=== PATIENT | male | born 1940 | race Caucasian/White ===

== ENCOUNTER 2018-10-18 17:22 | Emergency (ER) | payer MEDICARE, OTHER, SELFPAY ==
[2018-10-18 17:33] VITALS: BP 159/73; PULSE 57; RESP 21; TEMP 36.6; O2SAT 100
--- NOTE | 2018-10-18 17:42 | DI.RAD.S_ITS ---
PROCEDURE: XR ACUTE ABDOMEN SERIES INDICATIONS: abdominal pain, chest pain and constipation TECHNIQUE: One view chest and two views of the abdomen were acquired. COMPARISON: None. FINDINGS: Surgical changes and devices: None. Chest: Lungs are clear. Heart size is normal. No pleural effusions. No pneumoperitoneum. Abdomen: Bowel gas pattern demonstrates a paucity of gas in the small bowel. There is gas throughout the colon including in the rectum where there is moderate colonic stool distention. There are scattered air-fluid levels throughout the colon as well as within a few small bowel loops. No suspicious calcifications. Bones: No suspicious bony lesions. IMPRESSION: 1. Scattered air-fluid levels in the colon and small bowel suggestive of a gastroenteritis. 2. Moderate colonic stool distention in the rectum compatible with history of constipation. No definite evidence of obstruction. Dictated by: Jean Carlos Stockton M.D. on 10/18/2018 at 18:58 Approved by: Jean Carlos Stockton M.D. on 10/18/2018 at 19:00
[2018-10-18 18:09] VITALS: BP 134/60; BP 159/73; PULSE 54; PULSE 57; RESP 14; RESP 21; TEMP 36.6; O2SAT 100; O2SAT 98
--- NOTE | 2018-10-18 18:23 | ED.ABDPAIN ---
HPI - Abdominal Pain <NAEL Fink - Last Filed: 10/18/18 22:06> General Chief Complaint: Abdominal Pain Stated Complaint: stomach pain and chest pain Time Seen by Provider: 10/18/18 17:36 Source: patient Mode of arrival: ambulatory Limitations: no limitations History of Present Illness HPI narrative: 78-year-old male with history of GERD and was a former smoker here for complaint of bilateral lower abdominal pain that has been on and off over the past several weeks. He also reports having constipation over the last several days has had several episodes of constipation over the last several weeks as well. He was seen for this by his primary care provider and was placed on MiraLax. He states that this has not helped his constipation. He states that his last bowel movement was 3 days ago. He denies any urinary symptoms. He states he feels distention in his abdomen. Slight discomfort up to the epigastric area. He denies any shortness of breath. He denies any chest pain. MD complaint: abdominal pain Related Data Home Medications Medication Instructions Recorded Confirmed alfuzosin 10 mg PO QPM 10/18/18 10/18/18 amlodipine 5 mg PO BID 10/18/18 10/18/18 donepezil 5 mg PO BID 10/18/18 10/18/18 finasteride 5 mg PO DAILY 10/18/18 10/18/18 memantine 14 mg PO BID 10/18/18 10/18/18 omeprazole 20 mg PO DAILY 10/18/18 10/18/18 simvastatin 40 mg PO QPM 10/18/18 10/18/18 Previous Rx's Medication Instructions Recorded glycerin (adult) 1 suppositor CA QD-BID PRN #10 each 10/18/18 magnesium citrate 296 ml PO NOW #296 ml 10/18/18 Allergies Allergy/AdvReac Type Severity Reaction Status Date / Time No Known Drug Allergies Allergy Verified 10/18/18 17:45 Review of Systems <NAEL Fink - Last Filed: 10/18/18 22:06> Constitutional Denies chills, Denies fever(s), Denies lethargy and Denies weakness Eyes Denies change in vision, Denies eye discharge, Denies irritation and Denies loss of vision ENT Ears, Nose, Mouth, and Throat: Denies change in voice, Denies neck pain and Denies sore throat Cardiovascular Denies chest pain, Denies irregular heart rhythm, Denies lightheadedness, Denies palpitations, Denies dyspnea, Denies dyspnea on exertion and Denies orthopnea Respiratory Denies cough, Denies dyspnea, Denies dyspnea on exertion and Denies wheezing Gastrointestinal Gastrointestinal: Reports abdominal pain, Denies change in bowel habits, Reports constipation, Denies diarrhea, Denies nausea and Denies vomiting Comments: Abdominal pain and constipation Genitourinary Denies hematuria, Denies flank pain, Denies urinary incontinence and Denies urinary urgency Musculoskeletal Denies neck pain Integumentary/Breasts Denies pruritus, Denies erythema, Denies rash and Denies wounds Neurologic Denies confusion, Denies loss of vision and Denies weakness Psychiatric Denies anxiety, Denies confusion, Denies depression, Denies homicidal ideation and Denies suicidal ideation Endocrine Denies palpitations Hematologic/Lymphatic Denies easy bruising Allergic/Immunologic Denies wheezing Exam <NAEL Fink - Last Filed: 10/18/18 22:06> Initial Vital Signs Initial Vital Signs: Vital Signs Temperature 97.8 F 10/18/18 17:33 Pulse Rate 57 L 10/18/18 17:33 Respiratory Rate 21 10/18/18 17:33 Blood Pressure 159/73 H 10/18/18 17:33 Pulse Oximetry 100 10/18/18 17:33 Const General: cooperative and well developed Nutritional Appearance: well nourished Orientation: alert, awake, oriented x3 and not confused [facility] Mouth: oral mucosae normal and moist mucous membranes Eyes Conjunctivae: conjunctivae normal Sclera: sclerae normal Pupils: PERRL EOM: EOM intact bilaterally Resp Effort & Inspection: normal respiratory effort, able to speak in complete sentences, no respiratory distress and no use of accessory muscles Auscultation: clear to auscultation bilaterally, no rales, no rhonchi and no wheezes Cardio Rate: regular rate Rhythm: regular rhythm Heart Sounds: no click, no gallops, no murmurs and no rubs GI Inspection: non-distended Palpation: soft, no hepatosplenomegaly, No guarding, No pulsatile mass and tender (Generalized discomfort on palpation) Auscultation: normal bowel sounds General: No CVA tenderness Skin General: no rashes or lesions noted, No jaundice and No petechiae Neuro General: alert, oriented x3, gait normal and no focal motor deficits Speech: speech normal <Mehul Schmid DO - Last Filed: 10/19/18 00:07> Initial Vital Signs Initial Vital Signs: Vital Signs Temperature 97.8 F 10/18/18 17:33 Pulse Rate 57 L 10/18/18 17:33 Respiratory Rate 21 10/18/18 17:33 Blood Pressure 159/73 H 10/18/18 17:33 Pulse Oximetry 100 10/18/18 17:33 Course <NAEL Fink - Last Filed: 10/18/18 22:06> Orders Ordered: ED Orders 10/18/18 17:42 XR acute abdomen series Stat 10/18/18 18:04 Complete Blood Count AUTO DIFF Stat Comprehensive Metabolic Panel Stat Lipase Stat Troponin & CK Cardiac Panel Stat Vital Signs - 8 hr 10/18/18 17:33 10/18/18 18:09 10/18/18 20:02 Temperature 97.8 F 97.8 F 98.2 F Pulse Rate 57 L 54 L 55 L Respiratory Rate 21 14 18 Blood Pressure 159/73 H 159/73 H Blood Pressure [Right Arm] 134/60 142/73 H Pulse Oximetry 100 98 96 <Mehul Schmid DO - Last Filed: 10/19/18 00:07> Orders Ordered: ED Orders 10/18/18 17:42 XR acute abdomen series Stat 10/18/18 18:04 Complete Blood Count AUTO DIFF Stat Comprehensive Metabolic Panel Stat Lipase Stat Troponin & CK Cardiac Panel Stat Vital Signs - 8 hr 10/18/18 17:33 10/18/18 18:09 10/18/18 20:02 Temperature 97.8 F 97.8 F 98.2 F Pulse Rate 57 L 54 L 55 L Respiratory Rate 21 14 18 Blood Pressure 159/73 H 159/73 H Blood Pressure [Right Arm] 134/60 142/73 H Pulse Oximetry 100 98 96 MDM - Abdominal Pain <NAEL Fink - Last Filed: 10/18/18 22:06> Lab Data Result diagrams: 10/18/18 18:04 10/18/18 18:04 Lab Results 10/18/18 10/18/18 Range/Units 18:04 18:04 WBC 9.0 (4.5-11.0) X10^3/uL RBC 4.12 L (4.5-5.9) X10^6/uL Hgb 12.5 L (13.5-17.5) g/dL Hct 36.7 L (41-53) % MCV 89.2 (80-100) fL MCH 30.3 (26-34) PG MCHC 34.0 (30-36) % RDW 13.4 (11.6-14.8) % Plt Count 172 (150-400) X10^3/uL Neut % (Auto) 83.7 H (50-75) % Lymph % (Auto) 7.9 L (25-40) % [place] % (Auto) 7.0 (3-14) % Eos % (Auto) 0.7 L (2-4) % Baso % (Auto) 0.7 (0-2) % Neut # (Auto) 7500 H (3249-9350) /uL Sodium 135 L (137-145) mmol/L Potassium 4.1 (3.4-5.1) mmol/L Chloride 98 (98-107) mmol/L Carbon Dioxide 25 (22-32) mmol/L BUN 21 H (9-20) mg/dL Creatinine 0.70 (0.66-1.25) mg/dL Estimated GFR > 60.0 (>60) mL/min BUN/Creatinine Ratio 30.0 H (6-22) Glucose 104 (80-110) mg/dL Calcium 9.5 (8.4-10.2) mg/dL Total Bilirubin 0.5 (0.2-1.3) mg/dL AST 19 (17-59) IU/L ALT 21 (21-72) IU/L Alkaline Phosphatase 73 (38-126) U/L Total Creatine Kinase 122 (55-170) U/L CK-MB (CK-2) 2.29 (<2.37) ng/mL CK-MB (CK-2) Rel Index 1.9 (1.5-5.0) % Troponin I 0.017 (0.01-0.034) ng/mL Total Protein 6.9 (6.3-8.2) g/dL Albumin 4.4 (3.5-5.0) g/dL Globulin 2.5 (1.7-4.1) g/dL Albumin/Globulin Ratio 1.8 (1.0-2.8) Lipase 225 (23-300) U/L Imaging Data Abdominal x-ray: Radiologist's impression: [address] [address] XRay Report Signed Patient: Tony Shetty BMR#: [id number] : 9Acct:[id number] Age/Sex: 78 / MDate of Service: 10/18/18 Loc: ED Accession Number: [id number] Procedure: XR acute abdomen series Ordering Provider: Donna Love MD PROCEDURE: XR ACUTE ABDOMEN SERIES INDICATIONS: abdominal pain, chest pain and constipation TECHNIQUE: One view chest and two views of the abdomen were acquired. COMPARISON: None. FINDINGS: Surgical changes and devices: None. Chest: Lungs are clear. Heart size is normal. No pleural effusions. No pneumoperitoneum. Abdomen: Bowel gas pattern demonstrates a paucity of gas in the small bowel. There is gas throughout the colon including in the rectum where there is moderate colonic stool distention. There are scattered air-fluid levels throughout the colon as well as within a few small bowel loops. No suspicious calcifications. Bones: No suspicious bony lesions. IMPRESSION: 1. Scattered air-fluid levels in the colon and small bowel suggestive of a gastroenteritis. 2. Moderate colonic stool distention in the rectum compatible with history of constipation. No definite evidence of obstruction. Dictated by: Jean Carlos Stockton M.D. on 10/18/2018 at 18:58 Approved by: Jean Carlos Stockton M.D. on 10/18/2018 at 19:00 ECG Data Interpretation: EKG shows normal sinus rhythm with no ST elevation or depression. No ectopy. Ventricular rate of 60. Pr interval of 149. QTC of 406. MDM Narrative Medical decision making narrative: X-ray of the chest and abdomen was obtained and shows findings consistent with constipation. He is prescribed glycerin suppositories and also magnesium citrate to see if help him have a bowel movement. He is encouraged to follow up with primary care provider in the next few days for re-evaluation. Plenty of fluids. Increase fiber in diet. CBC was obtained and shows a mild anemia otherwise is unremarkable. chemistry panel and lipase were obtained and were unremarkable. EKG shows sinus rhythm with no ST elevation or depression. No ectopy. Troponin was obtained was negative. <Mehul Schmid, DO - Last Filed: 10/19/18 00:07> Lab Data Lab Results 10/18/18 10/18/18 Range/Units 18:04 18:04 WBC 9.0 (4.5-11.0) X10^3/uL RBC 4.12 L (4.5-5.9) X10^6/uL Hgb 12.5 L (13.5-17.5) g/dL Hct 36.7 L (41-53) % MCV 89.2 (80-100) fL MCH 30.3 (26-34) PG MCHC 34.0 (30-36) % RDW 13.4 (11.6-14.8) % Plt Count 172 (150-400) X10^3/uL Neut % (Auto) 83.7 H (50-75) % Lymph % (Auto) 7.9 L (25-40) % [place] % (Auto) 7.0 (3-14) % Eos % (Auto) 0.7 L (2-4) % Baso % (Auto) 0.7 (0-2) % Neut # (Auto) 7500 H (8009-1804) /uL Sodium 135 L (137-145) mmol/L Potassium 4.1 (3.4-5.1) mmol/L Chloride 98 (98-107) mmol/L Carbon Dioxide 25 (22-32) mmol/L BUN 21 H (9-20) mg/dL Creatinine 0.70 (0.66-1.25) mg/dL Estimated GFR > 60.0 (>60) mL/min BUN/Creatinine Ratio 30.0 H (6-22) Glucose 104 (80-110) mg/dL Calcium 9.5 (8.4-10.2) mg/dL Total Bilirubin 0.5 (0.2-1.3) mg/dL AST 19 (17-59) IU/L ALT 21 (21-72) IU/L Alkaline Phosphatase 73 (38-126) U/L Total Creatine Kinase 122 (55-170) U/L CK-MB (CK-2) 2.29 (<2.37) ng/mL CK-MB (CK-2) Rel Index 1.9 (1.5-5.0) % Troponin I 0.017 (0.01-0.034) ng/mL Total Protein 6.9 (6.3-8.2) g/dL Albumin 4.4 (3.5-5.0) g/dL Globulin 2.5 (1.7-4.1) g/dL Albumin/Globulin Ratio 1.8 (1.0-2.8) Lipase 225 (23-300) U/L Discharge Plan Departure Patient Disposition: Home Clinical Impression: Constipation Discharge Date/Time: 10/18/18 20:48 Interventions: ED Discharge Assessment Last Done: 10/18/18 20:47 Instructions: DI for Constipation Activity Restrictions/Additional Instructions: X-ray of the chest and abdomen were obtained and shows constipation. You are prescribed a suppository and also magnesium citrate a laxative to help with symptoms. Use as directed. Follow up with primary care provider next few days for re-evaluation. Drink plenty of fluids. Increase fiber in diet. For any worsening symptoms return to the emergency room. Prescriptions: New magnesium citrate solution 296 ml PO NOW Qty: 296 RF: 0 glycerin (adult) suppository 1 suppositor CA QD-BID PRN (Reason: constipation) Qty: 10 RF: 0 No Action amlodipine 5 mg tablet 5 mg PO BID RF: 0 alfuzosin 10 mg tablet extended release 24 hr 10 mg PO QPM RF: 0 donepezil 5 mg tablet 5 mg PO BID RF: 0 simvastatin 40 mg tablet 40 mg PO QPM RF: 0 omeprazole 20 mg capsule,delayed release(DR/EC) 20 mg PO DAILY RF: 0 finasteride 5 mg tablet 5 mg PO DAILY RF: 0 memantine 7 mg capsule,sprinkle,ER 24hr 14 mg PO BID RF: 0 Referrals: [facility] [Provider Group] <eMhul Schmid DO - Last Filed: 10/19/18 00:07> Cosign ED Attending Braxton Attestation: I was immediately available in the department for consultation. Documentation has been reviewed. I agree with assessment and plan.
[2018-10-18 18:35] LABS: Alanine Aminotransferase 21 IU/L (21-72); Albumin 4.4 g/dL (3.5-5.0); Albumin Globulin Ratio 1.8 (1.0-2.8); Alkaline Phosphatase 73 U/L (38-126); Aspartate Aminotransferase 19 IU/L (17-59); Bilirubin Total 0.5 mg/dL (0.2-1.3); Blood Urea Nitrogen 21 mg/dL (9-20); Calcium 9.5 mg/dL (8.4-10.2); Carbon Dioxide 25 mmol/L (22-32); Chloride 98 mmol/L (98-107); Creatine Kinase 122 U/L (55-170); Estimated Glomerular Filt Rate > 60.0 mL/min (>60); Globulin 2.5 g/dL (1.7-4.1); Glucose 104 mg/dL (80-110); HEMOLYSIS 22 (0-50); Lipase 225 U/L (23-300); Potassium 4.1 mmol/L (3.4-5.1); Sodium 135 mmol/L (137-145); Total Protein 6.9 g/dL (6.3-8.2)
[2018-10-18 18:39] LABS: Add Manual Diff / Slide Review NO; Basophils Percent Auto 0.7 % (0-2); Eosinophils Percent Auto 0.7 % (2-4); Hematocrit 36.7 % (41-53); Hemoglobin 12.5 g/dL (13.5-17.5); Lymphocytes Percent Auto 7.9 % (25-40); Mean Corpuscular Hemoglobin 30.3 PG (26-34); Mean Corpuscular Volume 89.2 fL (80-100); Neutrophils Absolute Auto 7500 /uL (3000-5900); Neutrophils Percent Auto 83.7 % (50-75); Platelet Count 172 X10^3/uL (150-400); Red Blood Cell Count 4.12 X10^6/uL (4.5-5.9); Red Cell Distribution Width 13.4 % (11.6-14.8)
[2018-10-18 18:47] LABS: Troponin I 0.017 ng/mL (0.01-0.034)
[2018-10-18 18:51] LABS: CKMB % Relative Index 1.9 % (1.5-5.0); Creatine Kinase MB 2.29 ng/mL (<2.37)
[2018-10-18 20:02] VITALS: BP 142/73; PULSE 55; RESP 18; TEMP 36.8; O2SAT 96
== END 2018-10-18 20:48 | disposition home or self-care (01) ==
PROVIDERS: Emergency Medicine; Emergency Provider Nurse Practitioner Family
DX: K59.00 Constipation, unspecified (principal)
CPT/HCPCS: 36591; 74022; 80053; 82550; 82553; 83690; 84484; 85025; 93005; 99282; 99285

== ENCOUNTER 2018-12-01 18:07 | Emergency (ER) | payer MEDICARE, OTHER, SELFPAY ==
[2018-12-01 18:17] VITALS: BP 154/71; PULSE 59; RESP 15; TEMP 36.6; O2SAT 96; BMI 33.2
--- NOTE | 2018-12-01 18:54 | DI.CT.S_ITS ---
PROCEDURE: CT CERVICAL SPINE WO CON INDICATIONS: Ground-level fall. TECHNIQUE: Noncontrast 3 mm thick sections acquired from the skull base to the T4 level. Sagittal and coronal reformats were then constructed. For radiation dose reduction, the following was used: automated exposure control, adjustment of mA and/or kV according to patient size. COMPARISON: None. FINDINGS: Image quality: Excellent. Bones: No fractures or dislocations. Visualized superior ribs are intact. Soft tissues: Prevertebral soft tissues are normal in thickness. No paravertebral hematomas. No apical pneumothoraces. IMPRESSION: Moderate degenerative disc disease over the middle and lower thirds of the cervical line. No trauma found. Dictated by: Amandeep Pandey M.D. on 12/01/2018 at 19:27 Approved by: Amandeep Pandey M.D. on 12/01/2018 at 19:28
--- NOTE | 2018-12-01 18:54 | DI.CT.S_ITS ---
PROCEDURE: CT HEAD/BRAIN WO CON INDICATIONS: Ground-level fall. TECHNIQUE: Noncontrast 4.5 mm thick angled axial sections acquired from the foramen magnum to the vertex, with coronal and sagittal reformats. For radiation dose reduction, the following was used: automated exposure control, adjustment of mA and/or kV according to patient size. COMPARISON: [facility], CT, HEAD WITH AND WITHOUT CONTRAST, 03/02/2009, 10:36. FINDINGS: Image quality: Excellent. CSF spaces: Basal cisterns are patent. No extra-axial fluid collections. The ventricles are symmetric in size and shape. Brain: No intracranial bleeds or masses. There is cerebral volume loss for age, with resultant ventricular and sulcal prominence. There are periventricular and deep white matter chronic small vessel ischemic changes. There is intracranial internal carotid artery atherosclerosis. Skull and face: Calvarium and visualized facial bones appear intact, without suspicious lesions. Sinuses: Visualized sinuses and mastoids are clear. IMPRESSION: No trauma seen. Dictated by: Amandeep Pandey M.D. on 12/01/2018 at 19:25 Approved by: Amandeep Pandey M.D. on 12/01/2018 at 19:27
--- NOTE | 2018-12-01 19:14 | ED_ITS ---
HPI - Fall <EWA Sorenson-BC - Last Filed: 12/01/18 20:53> General Chief Complaint: Fall Stated Complaint: HIT HEAD ON BAR Time Seen by Provider: 12/01/18 18:45 Source: patient and family Mode of arrival: ambulatory Limitations: no limitations History of Present Illness HPI Narrative: Patient is a 78-year-old male with history of dementia who is a former smoker who presents with his with chief complaint of hitting his head on the ground level fall. states that he was walking with things of both hands, which she is not supposed to do and tripped. She states he hit the side of his head on a counter or dresser. No LOC. Patient denies any numbness or tingling. Denies any neck pain or back pain. Patient does not take any blood thinners. states that his mental status is baseline for him. He has been walking around since his fall. Related Data Home Medications Medication Instructions Recorded Confirmed alfuzosin 10 mg PO QPM 10/18/18 10/18/18 amlodipine 5 mg PO BID 10/18/18 11/19/18 donepezil 5 mg PO BID 10/18/18 10/18/18 finasteride 5 mg PO DAILY 10/18/18 11/19/18 memantine 14 mg PO BID 10/18/18 11/19/18 omeprazole 20 mg PO DAILY 10/18/18 11/19/18 simvastatin 40 mg PO QPM 10/18/18 10/18/18 donepezil 5 mg tablet 5 mg PO DAILY 11/19/18 11/19/18 lubiprostone PO 11/19/18 11/19/18 polyethylene glycol 3350 PO 11/19/18 11/19/18 simvastatin PO 11/19/18 11/19/18 Previous Rx's Medication Instructions Recorded glycerin (adult) 1 suppositor ND QD-BID PRN #10 each 10/18/18 magnesium citrate 296 ml PO NOW #296 ml 10/18/18 Allergies Allergy/AdvReac Type Severity Reaction Status Date / Time No Known Drug Allergies Allergy Verified 10/18/18 17:45 Review of Systems <BINDU Sorenson - Last Filed: 12/01/18 20:53> Review of Systems GENERAL: Denies chills, fatigue, malaise, fever, sweats. HEENT: Denies sinus pain, ear pain, sore throat, difficulty swallowing, dizziness. RESPIRATORY: Denies dyspnea, cough, wheezing, hemoptysis, sputum. CARDIOVASCULAR: Denies chest pain, palpitations, orthopnea, edema, GASTROINTESTINAL: Denies nausea, vomiting, abdominal pain, diarrhea, constipation, melena. : Denies dysuria, frequency, incontinence, hematuria, urinary retention. MUSCULOSKELETAL: See HPI SKIN: Denies rash, skin lesions, or other NEUROLOGIC: See HPI PSYCHIATRIC: No concerning psychosocial issues. 12 point review of systems is negative except for those stated above Exam <Kylie Burris, HOSPICE ART THERAPIST-BC - Last Filed: 12/01/18 20:53> Narrative Exam Narrative: GENERAL: Elderly gentleman sitting on stretcher HEAD: Atraumatic. Normocephalic. No temporal or scalp tenderness. EYES: Pupils equal round and reactive. Extraocular motions intact. No scleral icterus. No injection or drainage. ENT: Nose without bleeding, purulent drainage or septal hematoma. Throat without erythema, tonsillar hypertrophy or exudate. Uvula midline. Airway patent. NECK: Trachea midline. No JVD or lymphadenopathy. Supple, nontender, no meningeal signs. CARDIOVASCULAR: Regular rate and rhythm without murmurs, gallops, or rubs. RESPIRATORY: Clear to auscultation. Breath sounds equal bilaterally. No wheezes , rales, or rhonchi. No cough. No increased respiratory effort. No pain on palpation of chest wall. GASTROINTESTINAL: Abdomen soft, non-tender, nondistended. No hepato-splenomegaly , or palpable masses. No guarding. EXTREMITIES: No clubbing, cyanosis, or edema. No joint tenderness, effusion, or edema noted. Pelvis is not painful to palpation. Pelvis is stable to rock. Patient denies any pain to palpation 4 extremities. BACK: Nontender without deformity or crepitance. No flank tenderness. No C- spine or spinal tenderness to palpation. NEURO: AOx3. Strength is equal upper and lower extremities bilaterally. Cranial nerves grossly intact. Speech is clear. SKIN: No rash or erythema. Initial Vital Signs Initial Vital Signs: Vital Signs Temperature 97.8 F 12/01/18 18:17 Pulse Rate 59 L 12/01/18 18:17 Respiratory Rate 15 12/01/18 18:17 Blood Pressure 154/71 H 12/01/18 18:17 Pulse Oximetry 96 12/01/18 18:17 <Janee Campos DO - Last Filed: 12/02/18 02:59> Initial Vital Signs Initial Vital Signs: Vital Signs Temperature 97.8 F 12/01/18 18:17 Pulse Rate 59 L 12/01/18 18:17 Respiratory Rate 15 12/01/18 18:17 Blood Pressure 154/71 H 12/01/18 18:17 Pulse Oximetry 96 12/01/18 18:17 Course <EWA Sorenson-BC - Last Filed: 12/01/18 20:53> Course Narrative: Checked on the patient and his family several times throughout his stay in the emergency department. I discussed at length his negative head CT, negative C-spine CT. Patient's family then said that his pelvis has been hurting him and they requested x-rays for this. Given that the patient is able to ambulate in ambulated into the emergency department, and also does not have any pain to palpation, I highly doubt a fracture at this point time. However the patient's history of dementia mix of a questionable historian so a obtain an x-ray to rule out fracture. The patient was noted to be ambulating steadily in the hallway of the emergency department with his cane. Patient's daughter states that he is ambulating at baseline for him. Orders Ordered: ED Orders 12/01/18 18:54 CT cervical spine wo con Stat CT head/brain wo con Stat 12/01/18 19:38 Urine Microscopic Stat 12/01/18 19:44 XR pelvis 1-2V Stat Discontinued Medications Acetaminophen (Tylenol) 650 mg ND NOW ONE Stop: 12/01/18 20:15 Last Admin: 12/01/18 20:42 Dose: Acetaminophen (Tylenol) 650 mg PO NOW ONE Stop: 12/01/18 20:41 Last Admin: 12/01/18 20:43 Dose: 650 mg Vital Signs - 8 hr 12/01/18 19:30 12/01/18 20:40 Temperature 97.9 F 97.9 F Pulse Rate 52 L 63 Respiratory Rate 17 17 Blood Pressure [Right Arm] 146/68 H 164/76 H Pulse Oximetry 97 93 <Janee Campos DO - Last Filed: 12/02/18 02:59> Orders Ordered: ED Orders 12/01/18 18:54 CT cervical spine wo con Stat CT head/brain wo con Stat 12/01/18 19:38 Urine Microscopic Stat 12/01/18 19:44 XR pelvis 1-2V Stat Discontinued Medications Acetaminophen (Tylenol) 650 mg ND NOW ONE Stop: 12/01/18 20:15 Last Admin: 12/01/18 20:42 Dose: Acetaminophen (Tylenol) 650 mg PO NOW ONE Stop: 12/01/18 20:41 Last Admin: 12/01/18 20:43 Dose: 650 mg Vital Signs - 8 hr 12/01/18 19:30 12/01/18 20:40 Temperature 97.9 F 97.9 F Pulse Rate 52 L 63 Respiratory Rate 17 17 Blood Pressure [Right Arm] 146/68 H 164/76 H Pulse Oximetry 97 93 MDM - Fall <BINDU Sorenson - Last Filed: 12/01/18 20:53> Lab Data Lab Results 12/01/18 Range/Units 19:38 Urine RBC 1-5/hpf (0-5/HPF) Urine WBC None seen (0-5/HPF) Urine Bacteria None seen (None) Ur Culture Indicated? Cult not indicated Micro UA Comment Not Reportable Urine Dip Bedside Urine Glucose Negative Bedside Urine Bilirubin - Negative Bedside Urine Ketone - Negative Urine Specific [employer] 1.015 Bedside Urine Occult Blood +/- Bedside Urine pH 6.0 Bedside Urine Protein - Negative Bedside Urine Urobilinogen - Negative Bedside Urine Nitrite - Negative Bedside Urine Leukocytes - Negative Esterase Imaging Data c spine ct : Radiologist's impression: [address] [address] [address] Scan Report Signed Patient: Tony Shetty MR#: [id number] : 1940 Acct:[id number] Age/Sex: 78 / M Date of Service: 12/01/18 Loc: ED Accession Number: [id number] Procedure: CT head/brain wo con Ordering Provider: Kylie Burris PROCEDURE: CT CERVICAL SPINE WO CON INDICATIONS: Ground-level fall. TECHNIQUE: Noncontrast 3 mm thick sections acquired from the skull base to the T4 level. Sagittal and coronal reformats were then constructed. For radiation dose reduction, the following was used: automated exposure control, adjustment of mA and/or kV according to patient size. COMPARISON: None. FINDINGS: Image quality: Excellent. Bones: No fractures or dislocations. Visualized superior ribs are intact. Soft tissues: Prevertebral soft tissues are normal in thickness. No paravertebral hematomas. No apical pneumothoraces. IMPRESSION: Moderate degenerative disc disease over the middle and lower thirds of the cervical line. No trauma found. Dictated by: Amandeep Pandey M.D. on 12/01/2018 at 19:27 Approved by: Amandeep Pandey M.D. on 12/01/2018 at 19:28 CT scan - head: Radiologist's impression: [address] [address] [address] Scan Report Signed Patient: Tony Shetty MR#: [id number] : 1940 Acct:[id number] Age/Sex: 78 / M Date of Service: 12/01/18 Loc: ED Accession Number: [id number] Procedure: CT cervical spine wo con Ordering Provider: Kylie Burris- PROCEDURE: CT HEAD/BRAIN WO CON INDICATIONS: Ground-level fall. TECHNIQUE: Noncontrast 4.5 mm thick angled axial sections acquired from the foramen magnum to the vertex, with coronal and sagittal reformats. For radiation dose reduction, the following was used: automated exposure control, adjustment of mA and/or kV according to patient size. COMPARISON: [facility], CT, HEAD WITH AND WITHOUT CONTRAST, 03/02/2009, 10: 36. FINDINGS: Image quality: Excellent. CSF spaces: Basal cisterns are patent. No extra-axial fluid collections. The ventricles are symmetric in size and shape. Brain: No intracranial bleeds or masses. There is cerebral volume loss for age , with resultant ventricular and sulcal prominence. There are periventricular and deep white matter chronic small vessel ischemic changes. There is intracranial internal carotid artery atherosclerosis. Skull and face: Calvarium and visualized facial bones appear intact, without suspicious lesions. Sinuses: Visualized sinuses and mastoids are clear. IMPRESSION: No trauma seen. Dictated by: Amandeep Pandey M.D. on 12/01/2018 at 19:25 Approved by: Amandeep Pandey M.D. on 12/01/2018 at 19:27 pelvis xray : Radiologist's impression: [address] [address] XRay Report Signed Patient: Tony Shetty MR#: [id number] : 1940 Acct:[id number] Age/Sex: 78 / M Date of Service: 12/01/18 Loc: ED Accession Number: [id number] Procedure: XR pelvis 1-2V Ordering Provider: Kylie Burris- PROCEDURE: XR PELVIS 1-2V INDICATIONS: hip pain s/p fall TECHNIQUE: 2 view(s) of the pelvis acquired. COMPARISON: None. FINDINGS: Bones: No fractures or dislocations. No suspicious bony lesions. Soft tissues: Visualized bowel gas pattern is normal. No suspicious soft tissue calcifications. IMPRESSION: No trauma found. There is moderately severe to severe degenerative disc disease and facet osteoarthritis along the visualized low lumbosacral spine, but no trauma found. 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 Dictated by: Amandeep Pandey M.D. on 12/01/2018 at 20:35 Approved by: Amandeep Pandey M.D. on 12/01/2018 at 20:36 [facility] Narrative Medical decision making narrative: Patient is a 78-year-old male with chronic dementia who presents with his and daughter after ground level fall. States he tripped and fell. No loss of consciousness. Given his dementia at baseline combined with his mechanism of injury, I elected to obtain a CT of his head and C-spine despite the fact that he is not on blood thinners. These came back normal. He did complain of some hip pain, so I obtained x-rays that show no acute fracture. He is able to still ambulate around the emergency department with his cane. He was given Tylenol in the emergency department for pain. I discussed follow-up with primary care provider as well as return precautions the emergency department including acute confusion or other acute concerns. Patient's and daughter state understanding of no questions or concerns at this point time. <Janee Campos DO - Last Filed: 12/02/18 02:59> Lab Data Lab Results 12/01/18 Range/Units 19:38 Urine RBC 1-5/hpf (0-5/HPF) Urine WBC None seen (0-5/HPF) Urine Bacteria None seen (None) Ur Culture Indicated? Cult not indicated Micro UA Comment Not Reportable Urine Dip Bedside Urine Glucose Negative Bedside Urine Bilirubin - Negative Bedside Urine Ketone - Negative Urine Specific [employer] 1.015 Bedside Urine Occult Blood +/- Bedside Urine pH 6.0 Bedside Urine Protein - Negative Bedside Urine Urobilinogen - Negative Bedside Urine Nitrite - Negative Bedside Urine Leukocytes - Negative Esterase Discharge Plan Departure Patient Disposition: Home Clinical Impression: Fall from ground level, Bilateral hip pain Discharge Date/Time: 12/01/18 20:55 Interventions: ED Discharge Assessment Last Done: 12/01/18 20:50 Instructions: How to Prevent Falls, Bandar Chi May Improve Physical Function, Reduce Falls, DI for Hip Pain Activity Restrictions/Additional Instructions: Tony had a normal head CT today after he fell, a normal C-spine CT, and a normal pelvis x-ray. He appears to be ambulating well around the emergency department to the bathroom. Please follow-up with his primary care provider. I have given you some information on decreasing falls. Come back to emergency department for any acute concerns. Prescriptions: No Action lubiprostone PO RF: 0 polyethylene glycol 3350 PO RF: 0 simvastatin PO RF: 0 donepezil [Aricept] 5 mg tablet 5 mg PO DAILY RF: 0 amlodipine 5 mg tablet 5 mg PO BID RF: 0 alfuzosin 10 mg tablet extended release 24 hr 10 mg PO QPM RF: 0 donepezil 5 mg tablet 5 mg PO BID RF: 0 simvastatin 40 mg tablet 40 mg PO QPM RF: 0 omeprazole 20 mg capsule,delayed release(DR/EC) 20 mg PO DAILY RF: 0 finasteride 5 mg tablet 5 mg PO DAILY RF: 0 memantine 7 mg capsule,sprinkle,ER 24hr 14 mg PO BID RF: 0 magnesium citrate solution 296 ml PO NOW Qty: 296 RF: 0 glycerin (adult) suppository 1 suppositor ND QD-BID PRN (Reason: constipation) Qty: 10 RF: 0 Referrals: Tyrone Loya MD [Primary Care Provider] - <Janee Campos DO - Last Filed: 12/02/18 02:59> Cosign ED Attending Braxton Attestation: I was immediately available in the department for consultation. Documentation has been reviewed. I agree with assessment and plan.
[2018-12-01 19:30] VITALS: BP 146/68; PULSE 52; RESP 17; TEMP 36.6; O2SAT 97
--- NOTE | 2018-12-01 19:44 | DI.RAD.S_ITS ---
PROCEDURE: XR PELVIS 1-2V INDICATIONS: hip pain s/p fall TECHNIQUE: 2 view(s) of the pelvis acquired. COMPARISON: None. FINDINGS: Bones: No fractures or dislocations. No suspicious bony lesions. Soft tissues: Visualized bowel gas pattern is normal. No suspicious soft tissue calcifications. IMPRESSION: No trauma found. There is moderately severe to severe degenerative disc disease and facet osteoarthritis along the visualized low lumbosacral spine, but no trauma found. 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 Dictated by: Amandeep Pandey M.D. on 12/01/2018 at 20:35 Approved by: Amandeep Pandey M.D. on 12/01/2018 at 20:36
[2018-12-01 19:51] LABS: Bacteria Urine None Seen; WBC Urine None Seen (0-5/HPF)
[2018-12-01 20:04] LABS: RBC Urine 1-5/HPF (0-5/HPF)
[2018-12-01 20:05] LABS: Culture Indicated Urine Cult Not Indicated
[2018-12-01 20:40] VITALS: BP 164/76; PULSE 63; RESP 17; TEMP 36.6; O2SAT 93
[2018-12-01] MEDS: ACETAMINOPHEN 325 MG TABLET 650 MG PO (20:43)
== END 2018-12-01 20:55 | disposition home or self-care (01) ==
PROVIDERS: Emergency Provider Nurse Practitioner Family; PCP Family Medicine
DX: M25.551 Pain in right hip (principal); M25.552 Pain in left hip; W19.XXXA Unspecified fall, initial encounter
CPT/HCPCS: 70450; 72125; 72170; 81003; 81015; 99283; 99284

== ENCOUNTER 2018-12-14 13:16 | Emergency (ER) | payer MEDICARE, OTHER, SELFPAY ==
[2018-12-14 13:19] VITALS: BP 161/74; PULSE 61; RESP 16; TEMP 36.3; O2SAT 96; BMI 33.2
[2018-12-14 14:59] VITALS: BP 153/60; PULSE 61; RESP 14; O2SAT 97
--- NOTE | 2018-12-14 14:59 | ED.FALL ---
HPI - Fall <NAEL Fink - Last Filed: 12/14/18 21:57> General Chief Complaint: Fall Stated Complaint: fall bump on head face Time Seen by Provider: 12/14/18 14:59 Source: patient Mode of arrival: ambulatory Limitations: no limitations History of Present Illness HPI Narrative: 78-year-old male with history of dementia and is a nonsmoker here for complaint of ground level fall hitting his head and face earlier today. Family is not sure what made him fall. The try to make him walk with a cane as he has a history of ground level falls and could be unstable on his feet. He states that he did not grab his cane this morning causing him to fall. They deny any loss of consciousness. No nausea vomiting. They state that he is acting appropriately for him. They deny any other injuries. No other concerns MD complaint: fall Related Data Home Medications Medication Instructions Recorded Confirmed alfuzosin 10 mg PO QPM 10/18/18 12/14/18 amlodipine 5 mg PO BID 10/18/18 12/14/18 donepezil 5 mg PO BID 10/18/18 12/14/18 finasteride 5 mg PO DAILY 10/18/18 12/14/18 memantine 14 mg PO BID 10/18/18 12/14/18 omeprazole 20 mg PO DAILY 10/18/18 12/14/18 simvastatin 40 mg PO QPM 10/18/18 12/14/18 lubiprostone 1 dose PO PRN PRN 11/19/18 12/14/18 polyethylene glycol 3350 1 dose PO PRN PRN 11/19/18 12/14/18 Previous Rx's Medication Instructions Recorded glycerin (adult) 1 suppositor [place] QD-BID PRN #10 each 10/18/18 Allergies Allergy/AdvReac Type Severity Reaction Status Date / Time No Known Drug Allergies Allergy Verified 12/14/18 13:19 Review of Systems <NAEL Fink - Last Filed: 12/14/18 21:57> Constitutional Denies chills, Denies fever(s), Denies lethargy and Denies weakness Eyes Denies change in vision, Denies eye discharge, Denies irritation and Denies loss of vision ENT Ears, Nose, Mouth, and Throat: Denies change in voice, Denies neck pain and Denies sore throat Cardiovascular Denies chest pain, Denies irregular heart rhythm, Denies lightheadedness, Denies palpitations, Denies dyspnea, Denies dyspnea on exertion and Denies orthopnea Respiratory Denies cough, Denies dyspnea, Denies dyspnea on exertion and Denies wheezing Gastrointestinal Gastrointestinal: Denies abdominal pain, Denies change in bowel habits, Denies diarrhea, Denies nausea and Denies vomiting Genitourinary Denies hematuria, Denies flank pain, Denies urinary incontinence and Denies urinary urgency Musculoskeletal Denies neck pain Integumentary/Breasts Denies pruritus, Denies erythema, Denies rash and Denies wounds Neurologic Denies confusion, Denies loss of vision and Denies weakness Comments: Ground level fall hitting forehead and face. Psychiatric Denies anxiety, Denies confusion, Denies depression, Denies homicidal ideation and Denies suicidal ideation Endocrine Denies palpitations Hematologic/Lymphatic Denies easy bruising Allergic/Immunologic Denies wheezing Exam <NAEL Fink - Last Filed: 12/14/18 21:57> Initial Vital Signs Initial Vital Signs: Vital Signs Temperature 97.4 F L 12/14/18 13:19 Pulse Rate 61 12/14/18 13:19 Respiratory Rate 16 12/14/18 13:19 Blood Pressure 161/74 H 12/14/18 13:19 Pulse Oximetry 96 12/14/18 13:19 Const General: cooperative and well developed Nutritional Appearance: well nourished Orientation: alert, awake, not oriented x3 and confused [facility] Head: normocephalic, No Waddell's sign, No contusion, No hematoma, No laceration, No palpable skull fracture, No raccoon eyes, No scalp lesion and No scalp tenderness Ears: external ears normal Nose: No external nose normal (0.5 cm superficial abrasion to the bridge of nose. Slight amount of blood at the naris. No active bleeding.), No epistaxis and No nasal discharge Face and sinus: sinuses nontender, face symmetric, no sinus tenderness and No dry mucous membranes Mouth: oral mucosae normal and moist mucous membranes Teeth and gingiva: dentition normal Throat: tonsils normal and uvula midline Eyes General: appearance normal, both eyes and all related structures Eyelids: eyelids normal Sclera: sclerae normal Pupils: PERRL EOM: EOM intact bilaterally Neck Neck: normal visual inspection, trachea midline, No lymphadenopathy, No midline deformity and No JVD Lymphatic: No lymphedema Resp Effort & Inspection: normal respiratory effort, able to speak in complete sentences, no respiratory distress and no use of accessory muscles Auscultation: clear to auscultation bilaterally, no rales, no rhonchi and no wheezes Cardio Rate: regular rate Rhythm: regular rhythm Heart Sounds: no click, no gallops, no murmurs and no rubs Pulses: normal peripheral pulses Skin General: no rashes or lesions noted, No jaundice and No petechiae Neuro General: alert, awake, not oriented x3 and moves all extremities Speech: speech normal <Janee Campos DO - Last Filed: 12/15/18 21:37> Initial Vital Signs Initial Vital Signs: Vital Signs Temperature 97.4 F L 12/14/18 13:19 Pulse Rate 61 12/14/18 13:19 Respiratory Rate 16 12/14/18 13:19 Blood Pressure 161/74 H 12/14/18 13:19 Pulse Oximetry 96 12/14/18 13:19 Course <NAEL Fink - Last Filed: 12/14/18 21:57> Orders Ordered: Discontinued Medications Tetanus/Diphtheria Toxoids (Td) 0.5 ml IM .ONCE ONE Stop: 12/14/18 15:59 Last Admin: 12/14/18 16:13 Dose: 0.5 ml Vital Signs - 8 hr 12/14/18 14:59 12/14/18 16:30 12/14/18 17:13 Pulse Rate 61 80 Respiratory Rate 14 16 Blood Pressure [Right Arm] 153/60 H 136/65 166/76 H Pulse Oximetry 97 <Janee Campos DO - Last Filed: 12/15/18 21:37> Orders Ordered: Discontinued Medications Tetanus/Diphtheria Toxoids (Td) 0.5 ml IM .ONCE ONE Stop: 12/14/18 15:59 Last Admin: 12/14/18 16:13 Dose: 0.5 ml Vital Signs - 8 hr 12/14/18 14:59 12/14/18 16:30 12/14/18 17:13 Pulse Rate 61 80 Respiratory Rate 14 16 Blood Pressure [Right Arm] 153/60 H 136/65 166/76 H Pulse Oximetry 97 MDM - Fall <NAEL Fink - Last Filed: 12/14/18 21:57> Imaging Data Head CT : Radiologist's impression: [address] [address] [address] Scan Report Signed Patient: Tony Shetty MR#: [id number] : 1940 Acct:[id number] Age/Sex: 78 / M Date of Service: 12/14/18 Loc: ED Accession Number: [id number] Procedure: CT head/brain wo con Ordering Provider: Jabari Box PROCEDURE: CT HEAD/BRAIN WO CON INDICATIONS: Ground level fall hitting face and head TECHNIQUE: Noncontrast 4.5 mm thick angled axial sections acquired from the foramen magnum to the vertex, with coronal and sagittal reformats. For radiation dose reduction, the following was used: automated exposure control, adjustment of mA and/or kV according to patient size. COMPARISON: [facility], CT, CT FACIAL BONES WO CON, 12/14/2018, 16:05. [facility], CT, CT HEAD/BRAIN WO CON, 12/01/2018, 18:58. FINDINGS: Image quality: Excellent. CSF spaces: Basal cisterns are patent. No extra-axial fluid collections. The ventricles are symmetric in size and shape. Brain: No intracranial bleeds or masses. There is cerebral volume loss for age, with resultant ventricular and sulcal prominence. There are periventricular and deep white matter chronic small vessel ischemic changes. There is intracranial internal carotid artery atherosclerosis. Skull and face: There is a right forehead hematoma seen. No underlying calvarial fracture is seen at this site. Calvarium and visualized facial bones appear intact, without suspicious lesions. Sinuses: Visualized sinuses and mastoids are clear. IMPRESSION: There is a right forehead hematoma seen. No fractures are seen. No acute intracranial hemorrhage. Dictated by: Guille Oliver M.D. on 12/14/2018 at 15:35 Approved by: Guille Oliver M.D. on 12/14/2018 at 15:[address] : Radiologist's impression: [address] [address] [address] Scan Report Signed Patient: Tony Shetty MR#: [id number] : 1940 Acct:[id number] Age/Sex: 78 / M Date of Service: 12/14/18 Loc: ED Accession Number: [id number] Procedure: CT facial bones wo con Ordering Provider: Jabari Box PROCEDURE: CT FACIAL BONES WO CON INDICATIONS: Ground level fall hitting face and head TECHNIQUE: Noncontrast 2.5 mm thick axial images acquired from the mandible through the frontal sinuses, with coronal and sagittal reformatting. For radiation dose reduction, the following was used: automated exposure control, adjustment of mA and/or kV according to patient size. COMPARISON: [facility], CT, CT HEAD/BRAIN WO CON, 12/01/2018, 18:58. [facility], CT, CT HEAD/BRAIN WO CON, 12/14/2018, 16:05. FINDINGS: Image quality: Excellent. Bones and teeth: Orbital chanel are intact. Sinus chanel show no fracture or deformity. Nasal bones and septum are intact. Visualized portions of the mandible demonstrate no fractures or subluxation. Zygomatic arches are intact. Pterygoid plates are intact. Visualized portions of the skull base and auditory canals are intact. Sinuses: Mild mucosal thickening can be seen within the paranasal sinuses. There is chronic moderate leftward nasal septal deviation, with a leftward directed bony nasal septal spur. 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 Soft tissues: There is a right forehead hematoma seen. No enlarged lymph nodes. Vascular: Visualized vascular structures appear normal in the absence of contrast. Bony vascular foramina and canals are intact. IMPRESSION: Right forehead hematoma. No associated fractures are seen. Dictated by: Guille Oliver M.D. on 12/14/2018 at 15:38 Approved by: Guille Oliver M.D. on 12/14/2018 at 15:41 [facility] Narrative Medical decision making narrative: CT of the head and facial bones was obtained was negative for any acute findings. Signs and symptoms presents as a minor head injury/facial injury. Minor abrasion to the nose was dressed with bacitracin. Dress wound daily with bacitracin until healed. Use [id number] Tylenol as needed for any discomfort. Head injury instructions are provided with warning signs to return to the emergency room. For any worsening symptoms return emergency room. Follow up with primary care provider. Discussed using wheelchair instead a cane to help prevent future falls due to recent history of increased falls. Discharge Plan Departure Patient Disposition: Home Clinical Impression: Minor closed head injury Discharge Date/Time: 12/14/18 17:14 Interventions: ED Discharge Assessment Last Done: 12/14/18 17:14 Instructions: DI for Closed Head Injury Activity Restrictions/Additional Instructions: CT the head face was obtained and was negative for any fractures. Signs symptoms presents as minor head injury. Use [id number] Tylenol as needed for any discomfort. Dress wound to nose with bacitracin daily until healed. Head injury instructions are provided with warning signs return to the emergency room. Follow up with primary care provider. For any worsening symptoms return to the emergency room. Wheelchair or walker may be beneficial and reducing falls. Prescriptions: No Action lubiprostone 1 dose PO PRN PRN (Reason: stomach pain) RF: 0 polyethylene glycol 3350 1 dose PO PRN PRN (Reason: Constipation) RF: 0 amlodipine 5 mg tablet 5 mg PO BID RF: 0 alfuzosin 10 mg tablet extended release 24 hr 10 mg PO QPM RF: 0 donepezil 5 mg tablet 5 mg PO BID RF: 0 simvastatin 40 mg tablet 40 mg PO QPM RF: 0 omeprazole 20 mg capsule,delayed release(DR/EC) 20 mg PO DAILY RF: 0 finasteride 5 mg tablet 5 mg PO DAILY RF: 0 memantine 7 mg capsule,sprinkle,ER 24hr 14 mg PO BID RF: 0 glycerin (adult) suppository 1 suppositor KS QD-BID PRN (Reason: constipation) Qty: 10 RF: 0 Referrals: Tyrone Loya MD [Primary Care Provider] - <Janee Campos DO - Last Filed: 12/15/18 21:37> [facility] ED Attending Lindaature Attestation: I was immediately available in the department for consultation. Documentation has been reviewed. I agree with assessment and plan.
--- NOTE | 2018-12-14 15:02 | ED_ITS ---
HPI - Fall <NAEL Fink - Last Filed: 12/14/18 21:57> General Chief Complaint: Fall Stated Complaint: fall bump on head face Time Seen by Provider: 12/14/18 14:59 Source: patient Mode of arrival: ambulatory Limitations: no limitations History of Present Illness HPI Narrative: 78-year-old male with history of dementia and is a nonsmoker here for complaint of ground level fall hitting his head and face earlier today. Family is not sure what made him fall. The try to make him walk with a cane as he has a history of ground level falls and could be unstable on his feet. He states that he did not grab his cane this morning causing him to fall. They deny any loss of consciousness. No nausea vomiting. They state that he is acting appropriately for him. They deny any other injuries. No other concerns MD complaint: fall Related Data Home Medications Medication Instructions Recorded Confirmed alfuzosin 10 mg PO QPM 10/18/18 12/14/18 amlodipine 5 mg PO BID 10/18/18 12/14/18 donepezil 5 mg PO BID 10/18/18 12/14/18 finasteride 5 mg PO DAILY 10/18/18 12/14/18 memantine 14 mg PO BID 10/18/18 12/14/18 omeprazole 20 mg PO DAILY 10/18/18 12/14/18 simvastatin 40 mg PO QPM 10/18/18 12/14/18 lubiprostone 1 dose PO PRN PRN 11/19/18 12/14/18 polyethylene glycol 3350 1 dose PO PRN PRN 11/19/18 12/14/18 Previous Rx's Medication Instructions Recorded glycerin (adult) 1 suppositor [place] QD-BID PRN #10 each 10/18/18 Allergies Allergy/AdvReac Type Severity Reaction Status Date / Time No Known Drug Allergies Allergy Verified 12/14/18 13:19 Review of Systems <NAEL Fink - Last Filed: 12/14/18 21:57> Constitutional Denies chills, Denies fever(s), Denies lethargy and Denies weakness Eyes Denies change in vision, Denies eye discharge, Denies irritation and Denies loss of vision ENT Ears, Nose, Mouth, and Throat: Denies change in voice, Denies neck pain and Denies sore throat Cardiovascular Denies chest pain, Denies irregular heart rhythm, Denies lightheadedness, Denies palpitations, Denies dyspnea, Denies dyspnea on exertion and Denies orthopnea Respiratory Denies cough, Denies dyspnea, Denies dyspnea on exertion and Denies wheezing Gastrointestinal Gastrointestinal: Denies abdominal pain, Denies change in bowel habits, Denies diarrhea, Denies nausea and Denies vomiting Genitourinary Denies hematuria, Denies flank pain, Denies urinary incontinence and Denies urinary urgency Musculoskeletal Denies neck pain Integumentary/Breasts Denies pruritus, Denies erythema, Denies rash and Denies wounds Neurologic Denies confusion, Denies loss of vision and Denies weakness Comments: Ground level fall hitting forehead and face. Psychiatric Denies anxiety, Denies confusion, Denies depression, Denies homicidal ideation and Denies suicidal ideation Endocrine Denies palpitations Hematologic/Lymphatic Denies easy bruising Allergic/Immunologic Denies wheezing Exam <NAEL Fink - Last Filed: 12/14/18 21:57> Initial Vital Signs Initial Vital Signs: Vital Signs Temperature 97.4 F L 12/14/18 13:19 Pulse Rate 61 12/14/18 13:19 Respiratory Rate 16 12/14/18 13:19 Blood Pressure 161/74 H 12/14/18 13:19 Pulse Oximetry 96 12/14/18 13:19 Const General: cooperative and well developed Nutritional Appearance: well nourished Orientation: alert, awake, not oriented x3 and confused [facility] Head: normocephalic, No Waddell's sign, No contusion, No hematoma, No laceration , No palpable skull fracture, No raccoon eyes, No scalp lesion and No scalp tenderness Ears: external ears normal Nose: No external nose normal (0.5 cm superficial abrasion to the bridge of nose. Slight amount of blood at the naris. No active bleeding.), No epistaxis and No nasal discharge Face and sinus: sinuses nontender, face symmetric, no sinus tenderness and No dry mucous membranes Mouth: oral mucosae normal and moist mucous membranes Teeth and gingiva: dentition normal Throat: tonsils normal and uvula midline Eyes General: appearance normal, both eyes and all related structures Eyelids: eyelids normal Sclera: sclerae normal Pupils: PERRL EOM: EOM intact bilaterally Neck Neck: normal visual inspection, trachea midline, No lymphadenopathy, No midline deformity and No JVD Lymphatic: No lymphedema Resp Effort & Inspection: normal respiratory effort, able to speak in complete sentences, no respiratory distress and no use of accessory muscles Auscultation: clear to auscultation bilaterally, no rales, no rhonchi and no wheezes Cardio Rate: regular rate Rhythm: regular rhythm Heart Sounds: no click, no gallops, no murmurs and no rubs Pulses: normal peripheral pulses Skin General: no rashes or lesions noted, No jaundice and No petechiae Neuro General: alert, awake, not oriented x3 and moves all extremities Speech: speech normal <Janee Campos DO - Last Filed: 12/15/18 21:37> Initial Vital Signs Initial Vital Signs: Vital Signs Temperature 97.4 F L 12/14/18 13:19 Pulse Rate 61 12/14/18 13:19 Respiratory Rate 16 12/14/18 13:19 Blood Pressure 161/74 H 12/14/18 13:19 Pulse Oximetry 96 12/14/18 13:19 Course <NAEL Fink - Last Filed: 12/14/18 21:57> Orders Ordered: Discontinued Medications Tetanus/Diphtheria Toxoids (Td) 0.5 ml IM .ONCE ONE Stop: 12/14/18 15:59 Last Admin: 12/14/18 16:13 Dose: 0.5 ml Vital Signs - 8 hr 12/14/18 14:59 12/14/18 16:30 12/14/18 17:13 Pulse Rate 61 80 Respiratory Rate 14 16 Blood Pressure [Right Arm] 153/60 H 136/65 166/76 H Pulse Oximetry 97 <Janee Campos DO - Last Filed: 12/15/18 21:37> Orders Ordered: Discontinued Medications Tetanus/Diphtheria Toxoids (Td) 0.5 ml IM .ONCE ONE Stop: 12/14/18 15:59 Last Admin: 12/14/18 16:13 Dose: 0.5 ml Vital Signs - 8 hr 12/14/18 14:59 12/14/18 16:30 12/14/18 17:13 Pulse Rate 61 80 Respiratory Rate 14 16 Blood Pressure [Right Arm] 153/60 H 136/65 166/76 H Pulse Oximetry 97 MDM - Fall <NAEL Fink - Last Filed: 12/14/18 21:57> Imaging Data Head CT : Radiologist's impression: [address] [address] [address] Scan Report Signed Patient: Tony Shetty MR#: [id number] : 1940 Acct:[id number] Age/Sex: 78 / M Date of Service: 12/14/18 Loc: ED Accession Number: [id number] Procedure: CT head/brain wo con Ordering Provider: Jabari Box PROCEDURE: CT HEAD/BRAIN WO CON INDICATIONS: Ground level fall hitting face and head TECHNIQUE: Noncontrast 4.5 mm thick angled axial sections acquired from the foramen magnum to the vertex, with coronal and sagittal reformats. For radiation dose reduction, the following was used: automated exposure control, adjustment of mA and/or kV according to patient size. COMPARISON: [facility], CT, CT FACIAL BONES WO CON, 12/14/2018, 16:05. [facility], CT, CT HEAD/BRAIN WO CON, 12/01/2018, 18:58. FINDINGS: Image quality: Excellent. CSF spaces: Basal cisterns are patent. No extra-axial fluid collections. The ventricles are symmetric in size and shape. Brain: No intracranial bleeds or masses. There is cerebral volume loss for age , with resultant ventricular and sulcal prominence. There are periventricular and deep white matter chronic small vessel ischemic changes. There is intracranial internal carotid artery atherosclerosis. Skull and face: There is a right forehead hematoma seen. No underlying calvarial fracture is seen at this site. Calvarium and visualized facial bones appear intact, without suspicious lesions. Sinuses: Visualized sinuses and mastoids are clear. IMPRESSION: There is a right forehead hematoma seen. No fractures are seen. No acute intracranial hemorrhage. Dictated by: Guille Oliver M.D. on 12/14/2018 at 15:35 Approved by: Guille Oliver M.D. on 12/14/2018 at 15:[address] : Radiologist's impression: [address] [address] [address] Scan Report Signed Patient: Tony Shetty MR#: [id number] : 1940 Acct:[id number] Age/Sex: 78 / M Date of Service: 12/14/18 Loc: ED Accession Number: [id number] Procedure: CT facial bones wo con Ordering Provider: Jabari Box PROCEDURE: CT FACIAL BONES WO CON INDICATIONS: Ground level fall hitting face and head TECHNIQUE: Noncontrast 2.5 mm thick axial images acquired from the mandible through the frontal sinuses, with coronal and sagittal reformatting. For radiation dose reduction, the following was used: automated exposure control, adjustment of mA and/or kV according to patient size. COMPARISON: [facility], CT, CT HEAD/BRAIN WO CON, 12/01/2018, 18:58. [facility], CT, CT HEAD/BRAIN WO CON, 12/14/2018, 16:05. FINDINGS: Image quality: Excellent. Bones and teeth: Orbital chanel are intact. Sinus chanel show no fracture or deformity. Nasal bones and septum are intact. Visualized portions of the mandible demonstrate no fractures or subluxation. Zygomatic arches are intact. Pterygoid plates are intact. Visualized portions of the skull base and auditory canals are intact. Sinuses: Mild mucosal thickening can be seen within the paranasal sinuses. There is chronic moderate leftward nasal septal deviation, with a leftward directed bony nasal septal spur. 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 Soft tissues: There is a right forehead hematoma seen. No enlarged lymph nodes. Vascular: Visualized vascular structures appear normal in the absence of contrast. Bony vascular foramina and canals are intact. IMPRESSION: Right forehead hematoma. No associated fractures are seen. Dictated by: Guille Oliver M.D. on 12/14/2018 at 15:38 Approved by: Guille Oliver M.D. on 12/14/2018 at 15:41 [facility] Narrative Medical decision making narrative: CT of the head and facial bones was obtained was negative for any acute findings. Signs and symptoms presents as a minor head injury/facial injury. Minor abrasion to the nose was dressed with bacitracin. Dress wound daily with bacitracin until healed. Use over-the- counter Tylenol as needed for any discomfort. Head injury instructions are provided with warning signs to return to the emergency room. For any worsening symptoms return emergency room. Follow up with primary care provider. Discussed using wheelchair instead a cane to help prevent future falls due to recent history of increased falls. Discharge Plan Departure Patient Disposition: Home Clinical Impression: Minor closed head injury Discharge Date/Time: 12/14/18 17:14 Interventions: ED Discharge Assessment Last Done: 12/14/18 17:14 Instructions: DI for Closed Head Injury Activity Restrictions/Additional Instructions: CT the head face was obtained and was negative for any fractures. Signs symptoms presents as minor head injury. Use [id number] Tylenol as needed for any discomfort. Dress wound to nose with bacitracin daily until healed. Head injury instructions are provided with warning signs return to the emergency room. Follow up with primary care provider. For any worsening symptoms return to the emergency room. Wheelchair or walker may be beneficial and reducing falls. Prescriptions: No Action lubiprostone 1 dose PO PRN PRN (Reason: stomach pain) RF: 0 polyethylene glycol 3350 1 dose PO PRN PRN (Reason: Constipation) RF: 0 amlodipine 5 mg tablet 5 mg PO BID RF: 0 alfuzosin 10 mg tablet extended release 24 hr 10 mg PO QPM RF: 0 donepezil 5 mg tablet 5 mg PO BID RF: 0 simvastatin 40 mg tablet 40 mg PO QPM RF: 0 omeprazole 20 mg capsule,delayed release(DR/EC) 20 mg PO DAILY RF: 0 finasteride 5 mg tablet 5 mg PO DAILY RF: 0 memantine 7 mg capsule,sprinkle,ER 24hr 14 mg PO BID RF: 0 glycerin (adult) suppository 1 suppositor [place] QD-BID PRN (Reason: constipation) Qty: 10 RF: 0 Referrals: Tyrone Loya MD [Primary Care Provider] - <Janee Campos DO - Last Filed: 12/15/18 21:37> [facility] ED Attending Lindaature Attestation: I was immediately available in the department for consultation. Documentation has been reviewed. I agree with assessment and plan.
--- NOTE | 2018-12-14 15:57 | DI.CT.S_ITS ---
PROCEDURE: CT HEAD/BRAIN WO CON INDICATIONS: Ground level fall hitting face and head TECHNIQUE: Noncontrast 4.5 mm thick angled axial sections acquired from the foramen magnum to the vertex, with coronal and sagittal reformats. For radiation dose reduction, the following was used: automated exposure control, adjustment of mA and/or kV according to patient size. COMPARISON: [facility], CT, CT FACIAL BONES WO CON, 12/14/2018, 16:05. [facility], CT, CT HEAD/BRAIN WO CON, 12/01/2018, 18:58. FINDINGS: Image quality: Excellent. CSF spaces: Basal cisterns are patent. No extra-axial fluid collections. The ventricles are symmetric in size and shape. Brain: No intracranial bleeds or masses. There is cerebral volume loss for age, with resultant ventricular and sulcal prominence. There are periventricular and deep white matter chronic small vessel ischemic changes. There is intracranial internal carotid artery atherosclerosis. Skull and face: There is a right forehead hematoma seen. No underlying calvarial fracture is seen at this site. Calvarium and visualized facial bones appear intact, without suspicious lesions. Sinuses: Visualized sinuses and mastoids are clear. IMPRESSION: There is a right forehead hematoma seen. No fractures are seen. No acute intracranial hemorrhage. Dictated by: Guille Oliver M.D. on 12/14/2018 at 15:35 Approved by: Guille Oliver M.D. on 12/14/2018 at 15:37
--- NOTE | 2018-12-14 15:57 | DI.CT.S_ITS ---
PROCEDURE: CT FACIAL BONES WO CON INDICATIONS: Ground level fall hitting face and head TECHNIQUE: Noncontrast 2.5 mm thick axial images acquired from the mandible through the frontal sinuses, with coronal and sagittal reformatting. For radiation dose reduction, the following was used: automated exposure control, adjustment of mA and/or kV according to patient size. COMPARISON: [facility], CT, CT HEAD/BRAIN WO CON, 12/01/2018, 18:58. [facility], CT, CT HEAD/BRAIN WO CON, 12/14/2018, 16:05. FINDINGS: Image quality: Excellent. Bones and teeth: Orbital chanel are intact. Sinus chanel show no fracture or deformity. Nasal bones and septum are intact. Visualized portions of the mandible demonstrate no fractures or subluxation. Zygomatic arches are intact. Pterygoid plates are intact. Visualized portions of the skull base and auditory canals are intact. Sinuses: Mild mucosal thickening can be seen within the paranasal sinuses. There is chronic moderate leftward nasal septal deviation, with a leftward directed bony nasal septal spur. 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 Soft tissues: There is a right forehead hematoma seen. No enlarged lymph nodes. Vascular: Visualized vascular structures appear normal in the absence of contrast. Bony vascular foramina and canals are intact. IMPRESSION: Right forehead hematoma. No associated fractures are seen. Dictated by: Guille Oliver M.D. on 12/14/2018 at 15:38 Approved by: Guille Oliver M.D. on 12/14/2018 at 15:41
[2018-12-14] MEDS: TETANUS DIPHTHERIA TOXOIDS 0.5 ML VIAL IM (16:13)
[2018-12-14 16:30] VITALS: BP 136/65
[2018-12-14 17:13] VITALS: BP 166/76; PULSE 80; RESP 16
== END 2018-12-14 17:14 | disposition home or self-care (01) ==
PROVIDERS: Emergency Provider Nurse Practitioner Family; PCP Family Medicine
DX: S09.90XA Unspecified injury of head, initial encounter (principal); W18.30XA Fall on same level, unspecified, initial encounter
CPT/HCPCS: 70450; 70486; 90471; 90714; 99283; 99284

== ENCOUNTER → 2019-08-26 13:23 | Outpatient (CLI) | payer MEDICARE, OTHER, SELFPAY ==
--- NOTE | 2019-08-26 | DI.RAD.S_ITS ---
PROCEDURE: XR KNEE RT 3V INDICATIONS: RT KNEE PAIN TECHNIQUE: 3 views of the knee were acquired. COMPARISON: None. FINDINGS: Bones: No fractures or dislocations. No suspicious bony lesions. Scattered degenerative subchondral sclerosis and spurring. Mild narrowing of the medial joint space Soft tissues: No joint effusion. Numerous vascular calcifications IMPRESSION: Mild right knee joint degeneration. If the patient's pain or other symptoms persist, consider further evaluation with MRI Dictated by: Gianni Aguilar M.D. on 08/26/2019 at 17:22 Approved by: Gianni Aguilar M.D. on 08/26/2019 at 17:24
== END ==
PROVIDERS: PCP Family Medicine; Visit Provider Family Medicine
DX: M25.561 Pain in right knee (principal); M17.11 Unilateral primary osteoarthritis, right knee
CPT/HCPCS: 73562

== ENCOUNTER 2019-08-28 15:33 | Observation (INO) | payer MEDICARE, OTHER, SELFPAY ==
[2019-08-28] VITALS (13 sets, daily range): BP systolic 127–187; BP diastolic 64–90; PULSE 59–76; RESP 16–20; TEMP 36.6–37.7; O2SAT 95–100; BMI 33.4
--- NOTE | 2019-08-28 16:03 | ED_ITS ---
HPI - Fall General Chief Complaint: Fall Stated Complaint: Fell out of bed Time Seen by Provider: 08/28/19 15:40 Source: EMS Mode of arrival: EMS History of Present Illness HPI Narrative: Patient is 79-year-old male with history of Alzheimer's dementia presenting with increasing falls. states that he has progressively been declining over the past few weeks. He was here as an outpatient for an x-ray of his knee 2 days ago. She says today he stood up he was unsteady he fell he hit his head on the dresser. He will sit on the toilet for hours at a time and then he is extremely difficult to get up and move around. Overall significantly harder to take care of at home. No fever. Patient denies any pain but overall is an extremely poor historian. Related Data Home Medications Medication Instructions Recorded Confirmed memantine 14 mg PO BID 10/18/18 08/29/19 alfuzosin 10 mg PO DAILY 08/28/19 08/28/19 amlodipine 5 mg PO BID 08/28/19 08/28/19 donepezil 5 mg PO BID 08/28/19 08/28/19 erythromycin 0.5 inch OPHTHALMIC (EYE) TID 08/28/19 08/28/19 finasteride 5 mg PO DAILY 08/28/19 08/28/19 omeprazole 20 mg PO DAILY 08/28/19 08/28/19 simvastatin 40 mg PO BEDTIME 08/28/19 08/28/19 Previous Rx's Medication Instructions Recorded glycerin (adult) 1 suppositor VA QD-BID PRN #10 each 10/18/18 Allergies Allergy/AdvReac Type Severity Reaction Status Date / Time No Known Drug Allergies Allergy Verified 12/14/18 13:19 Review of Systems Review of Systems ROS Unobtainable: Unobtainable due to mental condition Exam Initial Vital Signs Initial Vital Signs: Vital Signs Temperature 98.3 F 08/28/19 15:39 Pulse Rate 60 08/28/19 15:39 Respiratory Rate 16 08/28/19 15:39 Blood Pressure 131/81 08/28/19 15:39 Pulse Oximetry 97 08/28/19 15:39 GENERAL: Very confused alert male HEENT: Head atraumatic,EOMI, pupils reactive, face symmetric CARDIOVASCULAR: Regular rate and rhythm without murmurs, rubs or gallops. RESPIRATORY: Breath sounds equal bilaterally, no wheezes rales or rhonchi. ABDOMEN: Soft, nontender. Normoactive bowel sounds all 4 quadrants. No g uarding or rebound. EXTREMITIES: Normal range of motion, no clubbing or edema. 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 Not able to lift leg SKIN: Warm, dry, no laceration, no petechiae, no rashes or lesions. [facility] Medical History (Updated 08/28/19 @ 21:59 by NAEL Hough) BPH (benign prostatic hyperplasia) (Chronic) Constipation (Chronic) Dementia (Chronic) Dyslipidemia (Acute) Essential hypertension (Chronic) GERD (gastroesophageal reflux disease) (Chronic) Social History marital status: household members: spouse and children Smoking Status: Former smoker alcohol intake: never substance use type: does not use Social History marital status: household members: spouse and children Smoking Status: Former smoker alcohol intake: never substance use type: does not use Course Orders Ordered: Albuterol/Ipratropium (Duoneb) 3 ml INH RTQ6HR PRN PRN Reason: Shortness Of Breath Bisacodyl (Dulcolax) 10 mg VA DAILY PRN PRN Reason: Constipation Donepezil HCl (Aricept) 5 mg PO BID KARISSA Finasteride (Proscar) 5 mg PO DAILY [facility] Heparin Sodium (Porcine) (Heparin) 5,000 unit SUBCUT Q8HR KARISSA Last Admin: 08/29/19 06:09 Dose: 5,000 unit Documented by: AHARSTA Sodium Chloride (Normal Saline 0.9% Flush) 10 ml IV PRN PRN PRN Reason: Flush Sodium Chloride (Normal Saline 0.9% Flush) 10 ml IV BID KARISSA Discontinued Medications Furosemide (Lasix) 20 mg IV NOW ONE Stop: 08/29/19 04:24 Last Admin: 08/29/19 05:13 Dose: 20 mg Documented by: KGALLAG Sodium Chloride (Normal Saline 0.9%) 1,000 mls @ 150 mls/hr IV CONT KARISSA Last Admin: 08/28/19 17:41 Dose: 150 mls/hr Documented by: LIA Consultations Time: 18:44 Vital Signs Vital signs: Vital Signs - 8 hr 08/28/19 15:39 08/28/19 16:10 Temperature 98.3 F Pulse Rate 60 59 L Respiratory Rate 16 Blood Pressure 131/81 Blood Pressure [Left Arm] 146/79 H Pulse Oximetry 97 100 MDM - Fall Lab Data Attestation: I reviewed the patient's lab results. Result diagrams: 08/28/19 16:20 08/28/19 16:20 Labs: Lab Results 08/28/19 08/28/19 08/28/19 Range/Units 16:20 16:20 16:20 WBC 8.1 (4.5-11.0) X10^3/uL RBC 3.95 L (4.5-5.9) X10^6/uL Hgb 11.8 L (13.5-17.5) g/dL Hct 34.4 L (41-53) % MCV 87.2 (80-100) fL MCH 29.9 (26-34) PG MCHC 34.3 (30-36) % RDW 13.7 (11.6-14.8) % Plt Count 183 (150-400) X10^3/uL Neut % (Auto) 76.4 H (50-75) % Lymph % (Auto) 8.8 L (25-40) % [place] % (Auto) 12.4 (3-14) % Eos % (Auto) 1.8 L (2-4) % Baso % (Auto) 0.6 (0-2) % Neut # (Auto) 6200 (8522-8617) /uL Lymph # (Auto) 700 L (5310-3109) /uL [place] # (Auto) 1000 H (0-900) /uL Eos # (Auto) 100 (0-450) /uL Baso # (Auto) 100 (0-100) /uL PT 12.0 (10.1-12.7) SECONDS INR 1.0 (0.9-1.3) APTT 31 (26.4-36.2) SECONDS Sodium 130 L (137-145) mmol/L Potassium 4.5 (3.4-5.1) mmol/L Chloride 93 L (98-107) mmol/L Carbon Dioxide 28 (22-32) mmol/L BUN 13 (9-20) mg/dL Creatinine 0.60 L (0.66-1.25) mg/dL Estimated GFR > 60.0 (>60) mL/min BUN/Creatinine Ratio 21.7 (6-22) Glucose 97 (80-110) mg/dL Lactate (0.7-2.1) mmol/L Calcium 9.3 (8.4-10.2) mg/dL Total Bilirubin 0.7 (0.2-1.3) mg/dL AST 25 (17-59) IU/L ALT 20 L (21-72) IU/L Alkaline Phosphatase 76 (38-126) U/L Total Creatine Kinase (55-170) U/L Troponin I < 0.012 (0.01-0.034) ng/mL B-Natriuretic Peptide (<100) Total Protein 6.8 (6.3-8.2) g/dL Albumin 4.2 (3.5-5.0) g/dL Globulin 2.6 (1.7-4.1) g/dL Albumin/Globulin Ratio 1.6 (1.0-2.8) Procalcitonin (<0.5) ng/mL TSH (0.47-4.68) uIU/mL Prolactin 15.6 (3.7-17.9) ng/mL Urine Color Urine Appearance Urine pH (4.5-8.0) Ur Specific [place] (1.000-1.035) Urine Protein (Negative) Urine Glucose (UA) (Negative) g/dL Urine Ketones (NEGATIVE) Urine Occult Blood (Negative) Urine Nitrate (Negative) Urine Bilirubin (NEGATIVE) Urine Urobilinogen (0.2) E.U./dL Ur Leukocyte Esterase (NEGATIVE) Urine RBC (0-5/HPF) Urine WBC (0-5/HPF) Urine Bacteria (None) Urine Mucus (Negative) Ur Culture Indicated? Urine Osmolality Ur Random Sodium (30-90) mmol/L 08/28/19 08/28/19 08/28/19 Range/Units 16:20 16:20 16:20 WBC (4.5-11.0) X10^3/uL RBC (4.5-5.9) X10^6/uL Hgb (13.5-17.5) g/dL Hct (41-53) % MCV (80-100) fL MCH (26-34) PG MCHC (30-36) % RDW (11.6-14.8) % Plt Count (150-400) X10^3/uL Neut % (Auto) (50-75) % Lymph % (Auto) (25-40) % [place] % (Auto) (3-14) % Eos % (Auto) (2-4) % Baso % (Auto) (0-2) % Neut # (Auto) (8461-2394) /uL Lymph # (Auto) (1769-4523) /uL [place] # (Auto) (0-900) /uL Eos # (Auto) (0-450) /uL Baso # (Auto) (0-100) /uL PT (10.1-12.7) SECONDS INR (0.9-1.3) APTT (26.4-36.2) SECONDS Sodium (137-145) mmol/L Potassium (3.4-5.1) mmol/L Chloride (98-107) mmol/L Carbon Dioxide (22-32) mmol/L BUN (9-20) mg/dL Creatinine (0.66-1.25) mg/dL Estimated GFR (>60) mL/min BUN/Creatinine Ratio (6-22) Glucose (80-110) mg/dL Lactate (0.7-2.1) mmol/L Calcium (8.4-10.2) mg/dL Total Bilirubin (0.2-1.3) mg/dL AST (17-59) IU/L ALT (21-72) IU/L Alkaline Phosphatase (38-126) U/L Total Creatine Kinase (55-170) U/L Troponin I (0.01-0.034) ng/mL B-Natriuretic Peptide < 100 (<100) Total Protein (6.3-8.2) g/dL Albumin (3.5-5.0) g/dL Globulin (1.7-4.1) g/dL Albumin/Globulin Ratio (1.0-2.8) Procalcitonin < 0.05 (<0.5) ng/mL TSH 3.24 (0.47-4.68) uIU/mL Prolactin (3.7-17.9) ng/mL Urine Color Urine Appearance Urine pH (4.5-8.0) Ur Specific [place] (1.000-1.035) Urine Protein (Negative) Urine Glucose (UA) (Negative) g/dL Urine Ketones (NEGATIVE) Urine Occult Blood (Negative) Urine Nitrate (Negative) Urine Bilirubin (NEGATIVE) Urine Urobilinogen (0.2) E.U./dL Ur Leukocyte Esterase (NEGATIVE) Urine RBC (0-5/HPF) Urine WBC (0-5/HPF) Urine Bacteria (None) Urine Mucus (Negative) Ur Culture Indicated? Urine Osmolality Ur Random Sodium (30-90) mmol/L 08/28/19 08/28/19 08/28/19 Range/Units 16:20 17:05 17:40 WBC (4.5-11.0) X10^3/uL RBC (4.5-5.9) X10^6/uL Hgb (13.5-17.5) g/dL Hct (41-53) % MCV (80-100) fL MCH (26-34) PG MCHC (30-36) % RDW (11.6-14.8) % Plt Count (150-400) X10^3/uL Neut % (Auto) (50-75) % Lymph % (Auto) (25-40) % [place] % (Auto) (3-14) % Eos % (Auto) (2-4) % Baso % (Auto) (0-2) % Neut # (Auto) (6438-8166) /uL Lymph # (Auto) (4796-7200) /uL [place] # (Auto) (0-900) /uL Eos # (Auto) (0-450) /uL Baso # (Auto) (0-100) /uL PT (10.1-12.7) SECONDS INR (0.9-1.3) APTT (26.4-36.2) SECONDS Sodium (137-145) mmol/L Potassium (3.4-5.1) mmol/L Chloride (98-107) mmol/L Carbon Dioxide (22-32) mmol/L BUN (9-20) mg/dL Creatinine (0.66-1.25) mg/dL Estimated GFR (>60) mL/min BUN/Creatinine Ratio (6-22) Glucose (80-110) mg/dL Lactate 0.7 (0.7-2.1) mmol/L Calcium (8.4-10.2) mg/dL Total Bilirubin (0.2-1.3) mg/dL AST (17-59) IU/L ALT (21-72) IU/L Alkaline Phosphatase (38-126) U/L Total Creatine Kinase 367 H (55-170) U/L Troponin I (0.01-0.034) ng/mL B-Natriuretic Peptide (<100) Total Protein (6.3-8.2) g/dL Albumin (3.5-5.0) g/dL Globulin (1.7-4.1) g/dL Albumin/Globulin Ratio (1.0-2.8) Procalcitonin (<0.5) ng/mL TSH (0.47-4.68) uIU/mL Prolactin (3.7-17.9) ng/mL Urine Color Yellow Urine Appearance Clear Urine pH 6.5 (4.5-8.0) Ur Specific [place] <=1.005 (1.000-1.035) Urine Protein Negative (Negative) Urine Glucose (UA) Negative (Negative) g/dL Urine Ketones Trace H (NEGATIVE) Urine Occult Blood Trace-lysed (Negative) Urine Nitrate Negative (Negative) Urine Bilirubin Negative (NEGATIVE) Urine Urobilinogen 0.2 (0.2) E.U./dL Ur Leukocyte Esterase Negative (NEGATIVE) Urine RBC 0-1/hpf (0-5/HPF) Urine WBC 0-1/hpf (0-5/HPF) Urine Bacteria None seen (None) Urine Mucus 1+ H (Negative) Ur Culture Indicated? Culture not indicate Urine Osmolality Ur Random Sodium (30-90) mmol/L 08/28/19 08/28/19 Range/Units 17:40 17:40 WBC (4.5-11.0) X10^3/uL RBC (4.5-5.9) X10^6/uL Hgb (13.5-17.5) g/dL Hct (41-53) % MCV (80-100) fL MCH (26-34) PG MCHC (30-36) % RDW (11.6-14.8) % Plt Count (150-400) X10^3/uL Neut % (Auto) (50-75) % Lymph % (Auto) (25-40) % [place] % (Auto) (3-14) % Eos % (Auto) (2-4) % Baso % (Auto) (0-2) % Neut # (Auto) (6418-0163) /uL Lymph # (Auto) (2748-6489) /uL [place] # (Auto) (0-900) /uL Eos # (Auto) (0-450) /uL Baso # (Auto) (0-100) /uL PT (10.1-12.7) SECONDS INR (0.9-1.3) APTT (26.4-36.2) SECONDS Sodium (137-145) mmol/L Potassium (3.4-5.1) mmol/L Chloride (98-107) mmol/L Carbon Dioxide (22-32) mmol/L BUN (9-20) mg/dL Creatinine (0.66-1.25) mg/dL Estimated GFR (>60) mL/min BUN/Creatinine Ratio (6-22) Glucose (80-110) mg/dL Lactate (0.7-2.1) mmol/L Calcium (8.4-10.2) mg/dL Total Bilirubin (0.2-1.3) mg/dL AST (17-59) IU/L ALT (21-72) IU/L Alkaline Phosphatase (38-126) U/L Total Creatine Kinase (55-170) U/L Troponin I (0.01-0.034) ng/mL B-Natriuretic Peptide (<100) Total Protein (6.3-8.2) g/dL Albumin (3.5-5.0) g/dL Globulin (1.7-4.1) g/dL Albumin/Globulin Ratio (1.0-2.8) Procalcitonin (<0.5) ng/mL TSH (0.47-4.68) uIU/mL Prolactin (3.7-17.9) ng/mL Urine Color Urine Appearance Urine pH (4.5-8.0) Ur Specific [place] (1.000-1.035) Urine Protein (Negative) Urine Glucose (UA) (Negative) g/dL Urine Ketones (NEGATIVE) Urine Occult Blood (Negative) Urine Nitrate (Negative) Urine Bilirubin (NEGATIVE) Urine Urobilinogen (0.2) E.U./dL Ur Leukocyte Esterase (NEGATIVE) Urine RBC (0-5/HPF) Urine WBC (0-5/HPF) Urine Bacteria (None) Urine Mucus (Negative) Ur Culture Indicated? Urine Osmolality Cancelled Ur Random Sodium 28 L (30-90) mmol/L Imaging Data CT scan - head: Radiologist's impression: PROCEDURE: CT HEAD/BRAIN WO CON INDICATIONS: increased falls and confusion TECHNIQUE: Noncontrast 4.5 mm thick angled axial sections acquired from the foramen magnum to the vertex, with coronal and sagittal reformats. For radiation dose reduction, the following was used: automated exposure control, adjustment of mA and/or kV according to patient size. COMPARISON: [facility], CT, CT HEAD/BRAIN WO CON, 12/14/2018, 16:05. FINDINGS: Image quality: Evaluation limited by motion artifact. CSF spaces: Basal cisterns are patent. No extra-axial fluid collections. The ventricles are symmetric in size and shape. There is mild cerebral volume loss, with resultant ventricular and sulcal prominence. Brain: No definite intracranial hemorrhage, mass, or mass effect. There is a small focal hypodensity in the anterior horn of the right internal capsule compatible with a prior lacunar infarct of indeterminate acuity but compared to the prior study. There are subcortical, periventricular and deep white matter hypodensities consistent with mild chronic small vessel ischemic changes. There is intracranial internal carotid artery atherosclerosis. Skull and face: Calvarium and visualized facial bones appear intact, without suspicious lesions. Sinuses: Visualized sinuses and mastoids are clear. IMPRESSION: 1. No definite acute intracranial abnormality. 2. Small hypodensity in the right internal capsule compatible with a small lacunar infarct of indeterminate acuity but new from the prior study. 3. Mild chronic white matter small vessel ischemic changes and cerebral volume loss. Dictated by: Jean Carlos Stockton M.D. on 08/28/2019 at 15:56 Chest x-ray: Radiologist's impression: PROCEDURE: XR CHEST 1V INDICATIONS: increased falls and confusion TECHNIQUE: One view of the chest was acquired. COMPARISON: None. FINDINGS: Surgical changes and devices: None. Lungs and pleura: There are a few linear opacities in the lung bases likely representing atelectasis. There is pulmonary vascular prominence suggestive of mild edema. No pleural effusions or pneumothorax. Mediastinum: Mediastinal contours appear normal. Heart size is enlarged. Bones and chest wall: No suspicious bony lesions. Overlying soft tissues appea r unremarkable. IMPRESSION: 1. Pulmonary vascular prominence suggestive of mild edema. Dictated by: Jean Carlos Stockton M.D. on 08/28/2019 at 15:46 MDM Narrative Medical decision making narrative: Patient shows no sign of infection or reason for worsening confusion. This is likely progression of Alzheimer's. Family is wanting admission and placement. However at this time he does not admission criteria. They are understanding that May may have ability for this. I discussed case with Dr. ramon to declines patient for admission. Michael NAYAK will be down to discussed this with family. Patient placed into obs Discharge Plan Departure Patient Disposition: Admitted as Observation Clinical Impression: Alzheimer disease Qualifiers: Alzheimer's disease onset: unspecified onset Dementia behavioral disturbance: without behavioral disturbance Qualified Code(s): G30.9 - Alzheimer's disease, unspecified Discharge Date/Time: 08/28/19 22:24 Admit Date/Time: 08/28/19 21:27 Admit Provider: Bria Amezcua
--- NOTE | 2019-08-28 16:18 | DI.RAD.S_ITS ---
PROCEDURE: XR CHEST 1V INDICATIONS: increased falls and confusion TECHNIQUE: One view of the chest was acquired. COMPARISON: None. FINDINGS: Surgical changes and devices: None. Lungs and pleura: There are a few linear opacities in the lung bases likely representing atelectasis. There is pulmonary vascular prominence suggestive of mild edema. No pleural effusions or pneumothorax. Mediastinum: Mediastinal contours appear normal. Heart size is enlarged. Bones and chest wall: No suspicious bony lesions. Overlying soft tissues appear unremarkable. IMPRESSION: 1. Pulmonary vascular prominence suggestive of mild edema. Dictated by: Jean Carlos Stockton M.D. on 08/28/2019 at 15:46 Approved by: Jean Carlos Stockton M.D. on 08/28/2019 at 15:47
--- NOTE | 2019-08-28 16:18 | DI.CT.S_ITS ---
PROCEDURE: CT HEAD/BRAIN WO CON INDICATIONS: increased falls and confusion TECHNIQUE: Noncontrast 4.5 mm thick angled axial sections acquired from the foramen magnum to the vertex, with coronal and sagittal reformats. For radiation dose reduction, the following was used: automated exposure control, adjustment of mA and/or kV according to patient size. COMPARISON: [facility], CT, CT HEAD/BRAIN WO CON, 12/14/2018, 16:05. FINDINGS: Image quality: Evaluation limited by motion artifact. CSF spaces: Basal cisterns are patent. No extra-axial fluid collections. The ventricles are symmetric in size and shape. There is mild cerebral volume loss, with resultant ventricular and sulcal prominence. Brain: No definite intracranial hemorrhage, mass, or mass effect. There is a small focal hypodensity in the anterior horn of the right internal capsule compatible with a prior lacunar infarct of indeterminate acuity but compared to the prior study. There are subcortical, periventricular and deep white matter hypodensities consistent with mild chronic small vessel ischemic changes. There is intracranial internal carotid artery atherosclerosis. Skull and face: Calvarium and visualized facial bones appear intact, without suspicious lesions. Sinuses: Visualized sinuses and mastoids are clear. IMPRESSION: 1. No definite acute intracranial abnormality. 2. Small hypodensity in the right internal capsule compatible with a small lacunar infarct of indeterminate acuity but new from the prior study. 3. Mild chronic white matter small vessel ischemic changes and cerebral volume loss. Dictated by: Jean Carlos Stockton M.D. on 08/28/2019 at 15:56 Approved by: Jean Carlos Stockton M.D. on 08/28/2019 at 16:00
[2019-08-28 16:31] LABS: Add Manual Diff / Slide Review NO; Basophils Absolute Auto 100 /uL (0-100); Basophils Percent Auto 0.6 % (0-2); Eosinophils Absolute Auto 100 /uL (0-450); Eosinophils Percent Auto 1.8 % (2-4); Hematocrit 34.4 % (41-53); Hemoglobin 11.8 g/dL (13.5-17.5); Lymphocytes Absolute Auto 700 /uL (1100-4500); Lymphocytes Percent Auto 8.8 % (25-40); Mean Corpuscular HGB Conc 34.3 % (30-36); Mean Corpuscular Hemoglobin 29.9 PG (26-34); Mean Corpuscular Volume 87.2 fL (80-100); Monocytes Absolute Auto 1000 /uL (0-900); Monocytes Percent Auto 12.4 % (3-14); Neutrophils Absolute Auto 6200 /uL (1500-7000); Neutrophils Percent Auto 76.4 % (50-75); Platelet Count 183 X10^3/uL (150-400); Red Blood Cell Count 3.95 X10^6/uL (4.5-5.9); Red Cell Distribution Width 13.7 % (11.6-14.8); White Blood Cell Count 8.1 X10^3/uL (4.5-11.0)
[2019-08-28 16:40] LABS: PTT Partial Thromboplastin Tim 31 SECONDS (26.4-36.2)
[2019-08-28 16:42] LABS: Alanine Aminotransferase 20 IU/L (21-72); Albumin 4.2 g/dL (3.5-5.0); Albumin Globulin Ratio 1.6 (1.0-2.8); Alkaline Phosphatase 76 U/L (38-126); Aspartate Aminotransferase 25 IU/L (17-59); BUN Creatinine Ratio 21.7 (6-22); Bilirubin Total 0.7 mg/dL (0.2-1.3); Blood Urea Nitrogen 13 mg/dL (9-20); Calcium 9.3 mg/dL (8.4-10.2); Carbon Dioxide 28 mmol/L (22-32); Chloride 93 mmol/L (98-107); Estimated Glomerular Filt Rate > 60.0 mL/min (>60); Globulin 2.6 g/dL (1.7-4.1); Glucose 97 mg/dL (80-110); HEMOLYSIS < 15 (0-50); Potassium 4.5 mmol/L (3.4-5.1); Sodium 130 mmol/L (137-145); Total Protein 6.8 g/dL (6.3-8.2)
[2019-08-28 16:54] LABS: Troponin I < 0.012 ng/mL (0.01-0.034)
[2019-08-28 16:59] LABS: Prolactin 15.6 ng/mL (3.7-17.9)
[2019-08-28 17:28] LABS: Lactate (Lactic Acid) 0.7 mmol/L (0.7-2.1)
[2019-08-28] MEDS: SODIUM CHLORIDE 0.9% 1,000 ML 150 ML IV (17:41)
[2019-08-28 17:42] LABS: Thyroid Stimulating Hormone 3.24 uIU/mL (0.47-4.68)
[2019-08-28 17:48] LABS: Procalcitonin < 0.05 ng/mL (<0.5)
[2019-08-28 18:06] LABS: Bacteria Urine None Seen
[2019-08-28 18:07] LABS: Appearance Urine UA CLEAR; Bilirubin Urine UA NEGATIVE (NEGATIVE); Color Urine UA YELLOW; Glucose Urine UA NEGATIVE (Negative); Ketones Urine UA TRACE (NEGATIVE); Leukocyte Esterase Urine UA NEGATIVE (NEGATIVE); Nitrite Urine UA NEGATIVE (Negative); Occult Blood Urine UA TRACE-LYSED (Negative); Protein Urine UA NEGATIVE (Negative); Specific Gravity Urine UA <=1.005 (1.000-1.035); Urobilinogen Urine UA 0.2 E.U./dL (0.2); pH Urine UA 6.5 (4.5-8.0)
[2019-08-28 18:14] LABS: Mucus Urine 1+ (Negative); RBC Urine 0-1/HPF (0-5/HPF); WBC Urine 0-1/HPF (0-5/HPF)
--- NOTE | 2019-08-28 19:55 | PC.NURSE ---
Pt/family updated on plan of care. Pt's and daughter tearful, states they need more help at home. Report having minimal hrs per day and not everyday help for pt. Family in need of respite and more help at home. Berna to come down and speak to pt and family concerning getting more assistance to keep pt at home. with concerns for pt's safety at home d/t his size and declining ability to walk.
--- NOTE | 2019-08-28 20:39 | PC.NURSE ---
Berna at bedside speaking to family.
[2019-08-28 20:49] LABS: B Type Natriuretic Peptide < 100 (<100)
--- NOTE | 2019-08-28 21:56 | PM.HP.1 ---
History of Present Illness History of Present Illness Date Patient Seen: 08/28/19 Time Patient Seen: 19:56 Chief complaint: Fell out of bed Narrative: HPI is provided via review of records and direct interview with patient's and daughter. Patient himself is unable to partake in the HPI due to advanced dementia. The patient is an 79-year-old male with PMH significant for HTN, dyslipidemia, dementia (type unknown), BING (on CPAP), obesity (BMI 33.5), GERD, and chronic constipation. Patient presented to the ED via EMS out of concern for progressive weakness, gait instability, and falls. Onset of symptoms is not entirely clear. Family's description in regard to onset of symptoms is variable from 1 week to 1 year. The patient resides with his and daughter. At baseline, patient is known to perform certain tasks and ADLs independently; however, in recent months has required fairly consistent supervision. Over the past year patient is noted to have progressive cognitive impairment in regard to memory (both short and retirement), language (difficulty with spontaneous speech and dysarthria), and executive function. He is noted to have shuffling gait and tremor. In the past 1-2 weeks patient is observed to exhibit generalized weakness. He has difficulty ambulating and positioning self from sitting to standing position, even with a use of a lift chair. He is noted to be forgetful in his ability to perform certain tasks, such as how to use a walker. Also, having difficulty in regard to learning new tasks and comprehension. In the 24 hours prior to presentation he had difficulty feeding self. He is noted to have recurrent falls. The family does not verbalize presence of delirium or hallucinations. Patient does have a disturbed sleep wake cycle, and tends to be more restless or disoriented at night. He is noted to have increase in his tremor. No recent illness, fever, or chills. Patient does follow with Neurology, Dr. Lakhani. He is said to have seen by neurologist twice. Last 4 months ago. The family is not entirely clear in regard to the type of underlying dementia; however, recall being told of potential Lewy body subtype. They do not recall patient having any type of MRI as a part of his work-up. The family is concerned in their ability to manage the patient at home. According to the family, the concern was discussed with patient's PCP, Dr. Healy. They have also have a porter sample case, Noa Min. Family states that number of months ago they were set up with [facility]. At that time patient is noted to have been receiving PT/OT therapy twice weekly. He is noted to have received speech therapy once. There was additional home health that was supposed to come to the house to help bathe the patient, however they did not come for reasons unknown. I have not inquired how long the family has trialed the service. The family's comment as it pertains to services provided from [facility] and services received, they did not do much for us. At present time the patient is receiving respite care through [facility], 20 hours per month by report. They note that care hours or recently increased from 12-20 hours. The daughter describes respite care service as a, glorified nuclear technologist. The family expresses concern with services or lack of services that the respite care is currently providing. Specifically, inability to provide care such as bathing, mobility, or giving patient medications. The family also notes that they do not have proper equipment to take care of the patient at home; however, they do note installing grab bars. The family was asked about specific personal needs or their expectations in regard to the care that should be provided from service agencies. They were not entirely certain and were unable to provide a response. The family has emphasized on multiple occasions difficulty in patient care as it relates to mobility or transfers. ED presentation & work-up VS 08/28 @ 1639. T 98.3?F BP 131/81 HR 60 RR 16 SpO2 97% on room air Labs, 08/28 @ 1620 WBC 8.1 Hgb 11.8 Plt 183 Lactate 0.7 PCT < 0.05 Na 130 K 4.5 Cl 93 Ca 9.3 Alb 4.2 CO2 28 BUN 13 Cr 0.6 BUN:Cr 22 Glu 97 AST 25 ALT 20 Alk Phos 76 Trop < 0.012 BNP < 100 TSH 3.24 Prolactin 15.6 UA. Ketones Trace. No evidence of an infection. CT HEAD. No definite intracranial hemorrhage, mass or mass effect. Small focal hypodensity in the anterior horn of the right internal capsule compatible with a prior lacunar infarct of indeterminate acuity, but new from prior study on 12/14/2018. mild cerebral volume loss. Mild chronic small vessel ischemic changes. Intracranial internal carotid artery atherosclerosis. XR CHEST. Pulmonary vascular prominence suggestive of mild edema. Heart size is enlarged. Patient History Medical History (Updated 08/28/19 @ 21:59 by NAEL Hough) BPH (benign prostatic hyperplasia) (Chronic) Constipation (Chronic) Dementia (Chronic) Dyslipidemia (Acute) Essential hypertension (Chronic) GERD (gastroesophageal reflux disease) (Chronic) Social History marital status: household members: spouse and children Smoking Status: Former smoker alcohol intake: never substance use type: does not use Family & Social History Social History: household members spouse,children Safety & Behavioral: Feels Safe in Current Yes Environment Been Physically Hurt or No Threatened By a Person Tobacco & Substance use: Smoking Status Former smoker alcohol intake never alcohol intake frequency 0-2 drinks per day Substance Use Type does not use Meds Home Medications and Allergies Home Medications Medication Instructions Recorded Confirmed Type glycerin (adult) 1 suppositor [place] QD-BID PRN #10 each 10/18/18 08/29/19 Rx memantine 14 mg PO BID 10/18/18 08/29/19 History alfuzosin 10 mg PO DAILY 08/28/19 08/28/19 History amlodipine 5 mg PO BID 08/28/19 08/28/19 History donepezil 5 mg PO BID 08/28/19 08/28/19 History erythromycin 0.5 inch OPHTHALMIC (EYE) TID 08/28/19 08/28/19 History finasteride 5 mg PO DAILY 08/28/19 08/28/19 History omeprazole 20 mg PO DAILY 08/28/19 08/28/19 History simvastatin 40 mg PO BEDTIME 08/28/19 08/28/19 History Allergies Allergy/AdvReac Type Severity Reaction Status Date / Time No Known Drug Allergies Allergy Verified 12/14/18 13:19 Review of Systems Review of Systems ROS Unobtainable: All systems reviewed & are unremarkable except as noted in HPI and below Exam Vital Signs (past 8 hours): - 08/28/19 15:39 08/28/19 16:10 08/28/19 17:30 Temperature 98.3 F Pulse Rate 60 59 L 60 Respiratory Rate 16 Blood Pressure 131/81 Blood Pressure [Left Arm] 146/79 H 143/65 H Pulse Oximetry 97 100 99 08/28/19 18:00 08/28/19 18:30 08/28/19 19:00 Temperature Pulse Rate 60 61 64 Respiratory Rate Blood Pressure Blood Pressure [Left Arm] 187/70 H 140/86 127/90 Pulse Oximetry 98 98 97 08/28/19 19:30 08/28/19 19:44 08/28/19 20:35 Temperature Pulse Rate 62 62 70 Respiratory Rate 16 Blood Pressure Blood Pressure [Left Arm] 127/71 127/71 135/85 Pulse Oximetry 97 97 97 Oxygen Delivery Method Room Air Narrative Exam Narrative: Constitutional: mild respiratory distress, GCS 12 E4 V3 M5 Neurologic: Awake and alert. Oriented to self only, although unable to tell me his name on command. Dysarthria noted. Generalized tremor present. Spontaneous movement in all extremities noted. Degree of spasticity in the right upper extremity. Patient is very restless. Head: NC, AT Eyes: Pupils equal and reactive, extraocular movements intact, no scleral icterus Ears: external ears normal Nose: external nose normal, no rhinorrhea or epistaxis Throat: MMM, oropharynx w/o exudate Neck: no masses, lymphadenopathy, or JVD Chest / Respiratory: equal chest rise, audible wheezing, mild dyspnea, no for tachypnea, mild crackles bilaterally. On room air. Heart / CV: S1S2, distant tones, no murmur Abdomen / GI: round, NT, ND, + BS, no organomegaly : no suprapubic tenderness Peripheral / Vascular: warm to touch, DP and PT pulses palpable, bilateral lower extremity edema RLE 2+ > LLE 1+ Musc: Difficult to assess. No unilateral weakness. Strength equal in upper extremities. Strength diminished in lower extremities. Diminished ROM of bilateral lower extremities. Skin: Pale in appearance. No overt ecchymoses. Objective Labs Result Diagrams: 08/28/19 16:20 08/28/19 16:20 Labs: Laboratory Results - last 24 hr 08/28/19 08/28/19 08/28/19 16:20 16:20 16:20 WBC 8.1 RBC 3.95 L Hgb 11.8 L Hct 34.4 L MCV 87.2 MCH 29.9 MCHC 34.3 RDW 13.7 Plt Count 183 Neut % (Auto) 76.4 H Lymph % (Auto) 8.8 L [place] % (Auto) 12.4 Eos % (Auto) 1.8 L Baso % (Auto) 0.6 Neut # (Auto) 6200 Lymph # (Auto) 700 L [place] # (Auto) 1000 H Eos # (Auto) 100 Baso # (Auto) 100 PT 12.0 INR 1.0 APTT 31 Sodium 130 L Potassium 4.5 Chloride 93 L Carbon Dioxide 28 BUN 13 Creatinine 0.60 L Estimated GFR > 60.0 BUN/Creatinine Ratio 21.7 Glucose 97 Lactate Calcium 9.3 Total Bilirubin 0.7 AST 25 ALT 20 L Alkaline Phosphatase 76 Troponin I < 0.012 B-Natriuretic Peptide Total Protein 6.8 Albumin 4.2 Globulin 2.6 Albumin/Globulin Ratio 1.6 Procalcitonin TSH Prolactin 15.6 Urine Color Urine Appearance Urine pH Ur Specific [place] Urine Protein Urine Glucose (UA) Urine Ketones Urine Occult Blood Urine Nitrate Urine Bilirubin Urine Urobilinogen Ur Leukocyte Esterase Urine RBC Urine WBC Urine Bacteria Urine Mucus Ur Culture Indicated? 08/28/19 08/28/19 08/28/19 16:20 16:20 16:20 WBC RBC Hgb Hct MCV MCH MCHC RDW Plt Count Neut % (Auto) Lymph % (Auto) [place] % (Auto) Eos % (Auto) Baso % (Auto) Neut # (Auto) Lymph # (Auto) [place] # (Auto) Eos # (Auto) Baso # (Auto) PT INR APTT Sodium Potassium Chloride Carbon Dioxide BUN Creatinine Estimated GFR BUN/Creatinine Ratio Glucose Lactate Calcium Total Bilirubin AST ALT Alkaline Phosphatase Troponin I B-Natriuretic Peptide < 100 Total Protein Albumin Globulin Albumin/Globulin Ratio Procalcitonin < 0.05 TSH 3.24 Prolactin Urine Color Urine Appearance Urine pH Ur Specific [place] Urine Protein Urine Glucose (UA) Urine Ketones Urine Occult Blood Urine Nitrate Urine Bilirubin Urine Urobilinogen Ur Leukocyte Esterase Urine RBC Urine WBC Urine Bacteria Urine Mucus Ur Culture Indicated? 08/28/19 08/28/19 17:05 17:40 WBC RBC Hgb Hct MCV MCH MCHC RDW Plt Count Neut % (Auto) Lymph % (Auto) [place] % (Auto) Eos % (Auto) Baso % (Auto) Neut # (Auto) Lymph # (Auto) [place] # (Auto) Eos # (Auto) Baso # (Auto) PT INR APTT Sodium Potassium Chloride Carbon Dioxide BUN Creatinine Estimated GFR BUN/Creatinine Ratio Glucose Lactate 0.7 Calcium Total Bilirubin AST ALT Alkaline Phosphatase Troponin I B-Natriuretic Peptide Total Protein Albumin Globulin Albumin/Globulin Ratio Procalcitonin TSH Prolactin Urine Color Yellow Urine Appearance Clear Urine pH 6.5 Ur Specific [place] <=1.005 Urine Protein Negative Urine Glucose (UA) Negative Urine Ketones Trace H Urine Occult Blood Trace-lysed Urine Nitrate Negative Urine Bilirubin Negative Urine Urobilinogen 0.2 Ur Leukocyte Esterase Negative Urine RBC 0-1/hpf Urine WBC 0-1/hpf Urine Bacteria None seen Urine Mucus 1+ H Ur Culture Indicated? Culture not indicate Assessment & Plan Assessment & Plan narrative: Patient is being admitted for hyponatremia, generalized weakness, and progressive Alzheimer's dementia. Patient is being admitted under observation status. Hyponatremia (mild, Na 130), acute, present on admission, active / symptomatic Considering hypervolemic hyponatremia. CXR w/ pulmonary edema. On exam BLE edema and mild crackles. - serum and urine osmolality, urine sodium osmolalities were cancelled as they are send out labs and results will not be available in a time sensitive manner - TSH WNL - Will give lasix 20 mg IV x1 - Repeat labs in am. BMP, Mg. Decreased functional mobility and edurance, [id number] condition, present on admission, active Etiology unknown at this time muscle toxicity vs infection vs vitamin / amino acid deficiency vs CVA vs deconditioning vs advanced dementia vs e-lyte disturbance - Check CK level (results reviewed, CK 367, elevated) - Patient is on amlodipine 5 mg BID and simvastatin 40 mg QPM. Simvastatin doses greater than 20 mg are not recommended and should be avoided in amlodipine treated patient's due to risk for simvastatin toxicity, amlodipine carries a risk of increasing serum concentration of simvastatin. D/C simvastatin. Consider atorvastatin as an alternative. - Blood cx collected in ED, results pending - Consider checking for thiamine and copper deficiency as a source of weakness and difficulty w/ gait and mobility, these are send out labs and results will not be available immediately, recommend f/u w/ PCP - CT Head showing a small focal hypodensity in the anterior horn of the right internal capsule compatible with a prior lacunar infarct of indeterminate acuity, but new from prior study on 12/14/2018. Patient may have potentially had a small ischemic stroke since 12/14/2018, consider MRI (to be discussed with family as they are worried about finances related to this hospitalization). Not on ASA. On statin, which is now temporarily held d/t elevated CK level. Dementia w/ behavioral disturbance, progressive chronic condition, present on admission, active Demential type is not known... 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 - will consider pharmacologic treatment, if non-pharmacologic measures are not sufficient and patient's behavior poses a safety concern to self and caregiver avoid benzodiazepines or use w/ caution due to risk of falls, confusion, memory impairment, and oversedation will consider atypical low dose antipsychotic, such as Seroquel, Risperdal, or Zyprexa for behavioral disturbance / agitation Physical deconditioning, acute on chronic /progressive, present on admission, active - PT/OT eval and treat - Fall precautions, high fall risk Normocytic anemia (Hgb 11.8), chronic condition, present on admission, active - stable, no active s/s of bleeding at this time, consider checking iron studies in the outpatient setting Essential hypertension, chronic condition, present on admission, stable 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 Also, on alfuzosin 10 mg QPM. Family does not check patient's blood pressure at home. - Normotensive, continue BP monitoring / trending - Hold amlodipine, monitor trend, may need an adjustment in home dose - Concurrent administration of amlodipine and alfuzosin is not ideal, especially in elderly, as alfuzosin may enhance the hypotensive effect of antihypertensive medications, including postural hypotension. Recommending that helpful Zosyn is discontinued from patient's home medications altogether. 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 CK level elevated, once normalized start on atorvastatin or rosuvastatin with close monitoring of CK level Polypharmacy (currently takes between 6-9 medications daily), active Patient would benefit from an evaluation of his chronic medications. Current medication list provided by family has been reviewed in adjustments made (as noted above). - D/C alfuzosin and simvastatin; further use is not recommended indefinitely - Consider evaluation of donepezil for underlying dementia, encourage family to discuss with Neurology in the outpatient setting, how beneficial is the medication at this stage of the disease process and to benefits of continuing medication outweigh risks, side effect profile, and underlying effect on overall quality of life Caregiver has difficulty performing caretaking, active The family expresses lack of confidence to take care of the patient at home. They also express lack of financial resources that may be required to place patient into a tire changer aircraft care facility. The family feels that they do not have adequate equipment at home to care for the patient. The family also notes a step outside of the house, which makes it difficult to transfer patient from outside to the inside of the house. I have carried out an in-depth discussion with patient's and daughter. They were made aware that social work will be consulted to evaluate if patient qualifies for long-term care facility. If long-term care is not a possibility for the patient, I have discussed advantages of home health, even if they are available for limited quantity of time. The family was encouraged to give home health an opportunity to perform services they have been assigned. I have also encouraged family's involvement with PT/OT in learning techniques that would be helpful with patient's mobility or transfers at home. I have encouraged the use of respite care to potentially help with caregiver burden. I have noted that the patient has an underlying progressive brain disorder. Have expressed that patient's cognitive, behavioral, and motor symptoms will fluctuate from day-to-day and encouraged the family to learn to navigate and adapt to potential changes. I have encouraged attending support groups in learning skills and how to communicate with someone with dementia as well as learning skills that would be most helpful to reduce caregiver stress and frustration. The daughter has expressed a sense of frustration, poor communication and stress as relates to caregiving. I have discussed an option of hospice care. The family wishes to explore this option and potential resources further. - Consult social work and d/c planning placement home care resources, equipment to help with mobility hospice referral Per patient's daughter, patient has a POLST form. I have asked the daughter to bring the form to the hospital. At present time family wishes for patient to be DNR. Proxy decision maker is patient's . Patient's home medication regimen has been reviewed and reconciled accordingly. VT prophylaxis with SCDs and SQ Heaprin.
[2019-08-28 22:18] LABS: Creatine Kinase 367 U/L (55-170)
--- NOTE | 2019-08-28 23:39 | PC.NURSE ---
pt arrived in 220 via stretcher. 97%RA. family reports he uses a cpap at night, cont pulse ox on. chair alarm on. family at bedside. call light in reach. bed mobility 2 PA.
--- NOTE | 2019-08-29 00:17 | PC.NURSE ---
Addendum entered by Brissa Nicole R.N. 08/29/19 06:28: Has not been alert enough to do swallow eval. Has been soaked with urine with each reposition necessitating complete linen changes. Maintaining sats in mid 90's with oxygen. in room. Addendum entered by Brissa Nicole R.N. 08/29/19 04:00: Oximeter alarming and sat noted to be at 83% while patient asleep; started on O2 at 1L/min per NC and will titrate as needed. Original Note: Patient responds when spoken to but offers little conversation and words are mostly garbled. Does not open eyes when asked and does not follow direction. Breath sounds diminished but CTA with RA sat of 97%. HRR. BT hypoactive; abdomen is soft. Incontinent. Needing assist to reposition q2h. Is restless and attempting to crawl out of bed at shift change. Reddened/bruised area left side of head. Skin otherwise intact with no red or open areas noted. SCD's applied as per [employer] MAINFRAME SYSTEMS PROGRAMMER order. Chair alarm being used. Fall risk score is high. Family in room.
[2019-08-29 03:38] LABS: Sodium Urine Random 28 mmol/L (30-90)
[2019-08-29 04:00] VITALS: BP 161/92; PULSE 66; RESP 18; TEMP 37.7; O2SAT 83; O2SAT 96
[2019-08-29] MEDS: FUROSEMIDE 20 MG/2 ML VIAL IV (05:13)
[2019-08-29] MEDS: HEPARIN 5,000 UNIT/ML VIAL 5000 UNIT SUBCUT (06:09)
[2019-08-29 08:00] VITALS: BP 159/83; PULSE 69; RESP 18; TEMP 37.4; O2SAT 97
[2019-08-29 08:30] VITALS: O2SAT 97
[2019-08-29 09:09] LABS: Blood Urea Nitrogen 9 mg/dL (9-20); Carbon Dioxide 27 mmol/L (22-32); Chloride 93 mmol/L (98-107); Estimated Glomerular Filt Rate > 60.0 mL/min (>60); Glucose 113 mg/dL (80-110); HEMOLYSIS < 15 (0-50); Magnesium 1.9 mg/dL (1.6-2.3); Potassium 3.8 mmol/L (3.4-5.1); Sodium 130 mmol/L (137-145)
[2019-08-29 09:46] LABS: Cholesterol 122 mg/dL (140-199); HDL Cholesterol 65 mg/dL (40-60); LDL Cholesterol Calculated 47 mg/dL (<100); Triglycerides 49 mg/dL (35-150)
--- NOTE | 2019-08-29 14:25 | CM.DANOTE ---
DCP Assessment: EMR reviewed: Patient is a 79 yr old male who was admitted for OB's Due to a GLF out of bed. Patient has end stage Alzhimers and lives with his Joanne (DPOA) and daughter Felicita (caregiver). Patient PCP Dr. Vázquez. Met with patient's family at the bed side, explained CM/RNs Role. patient is not alert or oriented due to end stage Alzhimers. Family expressed feeling overwhelmed by the patients needs. Patient is now completely immobile and dependant for ADL's. Dr. Weiss met with CM to discuss d/c plan with family. Dr. Weiss, Family, and CM agreed that Hospice would be the best option for patient going forward. Hospice referral placed 08/29/2019 with [facility]. [phone], Clinicals were faxed to Hospice and S transport medical nessesity form was filled out and signed by MD and AUTOMOBILE UPHOLSTERER. Family is aware of potential cost will fall on them if Insurance doesn't cover Transport. Transport and was set up to take the patient home at 5:30 08/29/2019 by Albaro. Patients and daughter are set up with [facility], employment case manager Noa Pako, Phone number [phone]. Insurance 1st payer: Medicare, 2nd payer: [employer] Discharge plan: Patient will discharge home today on comfort care 08/29/2019 will be transported home by BLS transport with Hospice referral placed and intake scheduled for Thursday08/31/2019. According to Nancy at [facility], the patients hospital bed and supplies will be delivered tomorrow 08/30/2019 she will contact the family to arrange delivery. Fely Tan RN Discharge Planning/Care Management CM Discharge Assessment Start: 08/29/19 14:20 Freq: Status: Active Protocol: Document 08/29/19 14:20 HS (Rec: 08/29/19 14:24 HS [id number]) Discharge Planning Assessment Assigned Gum Machine Filler Fely Tan RN DPOA/Assigned Designee Name Joanne Shetty () Advance Directives? No History Provided By Family Member,Medical Record Prior Living Arrangements House Household Members spouse,children Type of transporation used prior to Relies on Others admit Independent with ADL's No Is patient alert and oriented? No Needs Assistance With Bathing,Eating,Grooming,Meal Prep,Toileting,Managing Medications,Home Chores / Shopping Caregiver for Another No DME Already Rented / Owned Wheelchair Comment Pt is beind D/C with hospice referal set up. Discharge Plan [facility] Referrals Initiated Other Additional Comment Hospice referral Whiteboard Updated in Patient Room with Yes name and ext. # of Gum Machine Filler Review Status In Process Next Review Type Continued Stay Review
--- NOTE | 2019-08-29 14:36 | P.DS_ITS ---
History of Present Illness History of Present Illness Date Patient Seen: 08/28/19 Chief complaint: Fell out of bed Narrative: Written by Bria NAYAK: HPI is provided via review of records and direct interview with patient's and daughter. Patient himself is unable to partake in the HPI due to advanced dementia. The patient is an 79-year-old male with PMH significant for HTN, dyslipidemia, dementia (type unknown), BING (on CPAP), obesity (BMI 33.5), GERD, and chronic constipation. Patient presented to the ED via EMS out of concern for progressive weakness, gait instability, and falls. Onset of symptoms is not entirely clear. Family's description in regard to onset of symptoms is variable from 1 week to 1 year. The patient resides with his and daughter. At baseline, patient is known to perform certain tasks and ADLs independently; however, in recent months has required fairly consistent supervision. Over the past year patient is noted to have progressive cognitive impairment in regard to memory (both short and correction), language (difficulty with spontaneous speech and dysarthria), and executive function. He is noted to have shuffling gait and tremor. In the past 1-2 weeks patient is observed to exhibit generalized weakness. He has difficulty ambulating and positioning self from sitting to standing position, even with a use of a lift chair. He is noted to be forgetful in his ability to perform certain tasks, such as how to use a walker. Also, having difficulty in regard to learning new tasks and comprehension. In the 24 hours prior to presentation he had difficulty feeding self. He is noted to have recu rrent falls. The family does not verbalize presence of delirium or hallucinations. Patient does have a disturbed sleep wake cycle, and tends to be more restless or disoriented at night. He is noted to have increase in his tremor. No recent illness, fever, or chills. Patient does follow with Neurology, Dr. Lakhani. He is said to have seen by neurologist twice. Last 4 months ago. The family is not entirely clear in regard to the type of underlying dementia; however, recall being told of pote ntial Lewy body subtype. They do not recall patient having any type of MRI as a part of his work-up. The family is concerned in their ability to manage the patient at home. According to the family, the concern was discussed with patient's PCP, Dr. Healy. They have also have a director case, Noa Min. Family states that number of months ago they were set up with [facility]. At that time patient is noted to have been receiving PT/OT therapy twice weekly. He is noted to have received speech therapy once. There was additional home health that was supposed to come to the house to help bathe the patient, however they did not come for reasons unknown. I have not inquired how long the family has trialed the service. The family's comment as it pertains to services provided f [facility] and services received, they did not do much for us. At present time the patient is receiving respite care through [facility], 20 hours per month by report. They note that care hours or recently increased from 12-20 hours. 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 The family expresses concern with services or lack of services that the respite care is currently providing. Specifically, inability to provide care such as bathing, mobility, or giving patient medications. The family also notes that they do not have proper equipment to take care of the patient at home; however, they do note installing grab bars. The family was asked about specific personal needs or their expectations in regard to the care that should be provided from service agencies. They were not entirely certain and were unable to provide a response. The family has emphasized on multiple occasions difficulty in patient care as it relates to mobility or transfers. ED presentation & work-up VS 08/28 @ 1639. T 98.3?F BP 131/81 HR 60 RR 16 SpO2 97% on room air Labs, 08/28 @ 1620 WBC 8.1 Hgb 11.8 Plt 183 Lactate 0.7 PCT < 0.05 Na 130 K 4.5 Cl 93 Ca 9.3 Alb 4.2 CO2 28 BUN 13 Cr 0.6 BUN:Cr 22 Glu 97 AST 25 ALT 20 Alk Phos 76 Trop < 0.012 BNP < 100 TSH 3.24 Prolactin 15.6 UA. Ketones Trace. No evidence of an infection. CT HEAD. No definite intracranial hemorrhage, mass or mass effect. Small focal hypodensity in the anterior horn of the right internal capsule compatible with a prior lacunar infarct of indeterminate acuity, but new from prior study on 12/14/2018. mild cerebral volume loss. Mild chronic small vessel ischemic garcia ges. Intracranial internal carotid artery atherosclerosis. XR CHEST. Pulmonary vascular prominence suggestive of mild edema. Heart size is enlarged. Discharge Providers Provider Date of admission: 08/28/19 21:27 Discharge Date: 08/29/19 Primary care physician: Tyrone Loya MD Consults: 08/28/19 21:51 Consult to Discharge Planning Routine Comment: options for home care, financial resources 08/28/19 21:52 Consult to Physical Therapy Evaluate & Treat Comment: impaired mobility, generalized weakness, deconditi Physician Instructions: Evaluate and Treat 08/28/19 21:53 Consult to Occupational Therapy Evaluate & Treat Comment: decreased ability to perform ADLs Physician Instructions: Evaluate and treat 08/28/19 21:54 Consult to [employer] Routine Comment: hospice, home equipment 08/29/19 04:00 Consult to Respiratory Therapy Evaluate & Treat Comment: Physician Instructions: Evaluate and treat 08/29/19 05:27 Consult to Hospice Referral Routine Comment: Discharge provider: Tessa Weiss DO Summary Hospital Course Discharge Diagnosis: 1. Palliative care. 2. Advanced Alzheimer's dementia with behavioral disturbance, chronic, present on admission. Active. 3. Hyponatremia, acuity unclear, present on admission. Stable. 4. Progressive worsening physical deconditioning secondary to advanced dementia, chronic, present on admission. Stable. 5. Normocytic anemia, chronic, present on admission. Stable. 6. Hypertension, chronic, present on admission. Stable. 7. Hyperlipidemia, chronic, present on admission. Stable. 8. BPH, chronic, present on admission. Stable. 9. BING on CPAP, chronic, present on admission. Stable. Hospital Course: 1. Palliative care. -Discussed goals of care with patient's and DPOA, daughter, and son -Discontinued all oral medications as patient is unable to effectively swallow and take oral medications. -Ordered morphine concentrate 5-10 mg every 4 hours as needed for pain, discomfort or air hunger. May titrate to comfort. 2. Advanced Alzheimer's dementia with behavioral disturbance, chronic, present on admission. Active. -Discussed case with patient's neurologist, Dr. Lakhani, who relays that patient had some significant and severely worsening Alzheimer's dementia with hallucinations. The patient had a mini-mental exam performed in January by his PCP Dr. Loya with a score of +16/20 indicative of moderate dementia. His mini-mental exam was repeated by his neurologist Dr. Lakhani a month later in which he scored a +3/30. -Patient qualifies for hospice due to following criteria: The patient is unable to walk, unable to dress himself, he needs help with hygiene including bathing and grooming, he is incontinent of both bowel and bladder, he has advanced dementia with incomprehensible language/sounds. His [place] mortality risk indicators score is 9.7 (complete dependence with ADLs, male gender, less than 25% of food eat most meals, bowel incontinence, bedfast, and not awake most of the day). Hospice referral placed. 3. Hyponatremia, acuity unclear, present on admission. Stable. -Possibly secondary to hypervolemic hyponatremia. CXR demonstrated mild pulmonary vascular prominence suggestive of mild edema. Clinical exam demonstr ated bilateral lower extremity edema and mild crackles. -Serum and urine osmolality were cancelled as they are send out labs and results will not be available in a time sensitive manner. -TSH normal at 3.24. -Receive furosemide 20 mg IV x1. 4. Progressive worsening physical deconditioning secondary to advanced dementia, chronic, present on admission. Stable. -Patient has advanced dementia and spends most of the day in bed sleeping. 5. Normocytic anemia, chronic, present on admission. Stable. -Possibly secondary to anemia of chronic disease. -Stable and no active signs or symptoms of bleeding. 6. Hypertension, chronic, present on admission. Stable. -Patient was normotensive throughout hospitalization. -Discontinued antihypertensive medications as patient is comfort care only. 7. Hyperlipidemia, chronic, present on admission. Stable. -Discontinued patient's statin as patient is comfort care only. 8. BPH, chronic, present on admission. Stable. -Discontinued patient's medications as he is comfort care only. 9. BING on CPAP, chronic, present on admission. Stable. -Consult RT for CPAP protocol -Supplemental O2 prn, Duo-Neb Q6H prn for bronchospasms Exam Vital Signs (past 8 hours): - 08/29/19 08:00 08/29/19 08:30 Temperature 99.4 F Pulse Rate 69 Respiratory Rate 18 Blood Pressure 159/83 H Pulse Oximetry 97 97 Oxygen Delivery Method Nasal Cannula Oxygen Flow Rate 1 Narrative Exam Narrative: General: Elderly gentleman lying in bed, sleeping majority of the time, arousable and unable to converse effectively. HEENT: Normocephalic, atraumatic. External ears without defect. Pupils equal, round, and reactive to light. Anicteric sclerae, moist conjunctivae, and no lid lag. Dry oral mucosa. Neck: Supple. No lymphadenopathy or thyromegaly. Cardiovascular: Regular rate and rhythm without murmurs, rubs, or gallops appreciated. Pulmonary: Clear to auscultation bilaterally with fine bibasilar crackles. No wheezes or rhonchi. Normal respiratory effort with no use of accessory muscles. Abdomen: Soft, bowel sounds present, appears to be nontender, nondistended. No hepatosplenomegaly or masses appreciated. Extremities: No clubbing, cyanosis, or edema. Skin: Normal temperature, turgor, and texture; no rash, ulcers, or subcutaneous nodules appreciated. Neurological: Advanced Alzheimer's dementia with behavioral disturbance. Unable to converse effectively. Objective Labs Result Diagrams: 08/28/19 16:20 08/29/19 08:47 Labs: Laboratory Results - last 24 hr 08/28/19 08/28/19 08/28/19 16:20 16:20 16:20 WBC 8.1 RBC 3.95 L Hgb 11.8 L Hct 34.4 L MCV 87.2 MCH 29.9 MCHC 34.3 RDW 13.7 Plt Count 183 Neut % (Auto) 76.4 H Lymph % (Auto) 8.8 L [place] % (Auto) 12.4 Eos % (Auto) 1.8 L Baso % (Auto) 0.6 Neut # (Auto) 6200 Lymph # (Auto) 700 L [place] # (Auto) 1000 H Eos # (Auto) 100 Baso # (Auto) 100 PT 12.0 INR 1.0 APTT 31 Sodium 130 L Potassium 4.5 Chloride 93 L Carbon Dioxide 28 BUN 13 Creatinine 0.60 L Estimated GFR > 60.0 BUN/Creatinine Ratio 21.7 Glucose 97 Lactate Calcium 9.3 Magnesium Total Bilirubin 0.7 AST 25 ALT 20 L Alkaline Phosphatase 76 Total Creatine Kinase Troponin I < 0.012 B-Natriuretic Peptide Total Protein 6.8 Albumin 4.2 Globulin 2.6 Albumin/Globulin Ratio 1.6 Triglycerides Cholesterol LDL Cholesterol, Calc HDL Cholesterol Procalcitonin TSH Prolactin 15.6 Urine Color Urine Appearance Urine pH Ur Specific [place] Urine Protein Urine Glucose (UA) Urine Ketones Urine Occult Blood Urine Nitrate Urine Bilirubin Urine Urobilinogen Ur Leukocyte Esterase Urine RBC Urine WBC Urine Bacteria Urine Mucus Ur Culture Indicated? Urine Osmolality Ur Random Sodium 08/28/19 08/28/19 08/28/19 16:20 16:20 16:20 WBC RBC Hgb Hct MCV MCH MCHC RDW Plt Count Neut % (Auto) Lymph % (Auto) [place] % (Auto) Eos % (Auto) Baso % (Auto) Neut # (Auto) Lymph # (Auto) [place] # (Auto) Eos # (Auto) Baso # (Auto) PT INR APTT Sodium Potassium Chloride Carbon Dioxide BUN Creatinine Estimated GFR BUN/Creatinine Ratio Glucose Lactate Calcium Magnesium Total Bilirubin AST ALT Alkaline Phosphatase Total Creatine Kinase Troponin I B-Natriuretic Peptide < 100 Total Protein Albumin Globulin Albumin/Globulin Ratio Triglycerides Cholesterol LDL Cholesterol, Calc HDL Cholesterol Procalcitonin < 0.05 TSH 3.24 Prolactin Urine Color Urine Appearance Urine pH Ur Specific [place] Urine Protein Urine Glucose (UA) Urine Ketones Urine Occult Blood Urine Nitrate Urine Bilirubin Urine Urobilinogen Ur Leukocyte Esterase Urine RBC Urine WBC Urine Bacteria Urine Mucus Ur Culture Indicated? Urine Osmolality Ur Random Sodium 08/28/19 08/28/19 08/28/19 16:20 17:05 17:40 WBC RBC Hgb Hct MCV MCH MCHC RDW Plt Count Neut % (Auto) Lymph % (Auto) [place] % (Auto) Eos % (Auto) Baso % (Auto) Neut # (Auto) Lymph # (Auto) [place] # (Auto) Eos # (Auto) Baso # (Auto) PT INR APTT Sodium Potassium Chloride Carbon Dioxide BUN Creatinine Estimated GFR BUN/Creatinine Ratio Glucose Lactate 0.7 Calcium Magnesium Total Bilirubin AST ALT Alkaline Phosphatase Total Creatine Kinase 367 H Troponin I B-Natriuretic Peptide Total Protein Albumin Globulin Albumin/Globulin Ratio Triglycerides Cholesterol LDL Cholesterol, Calc HDL Cholesterol Procalcitonin TSH Prolactin Urine Color Yellow Urine Appearance Clear Urine pH 6.5 Ur Specific [place] <=1.005 Urine Protein Negative Urine Glucose (UA) Negative Urine Ketones Trace H Urine Occult Blood Trace-lysed Urine Nitrate Negative Urine Bilirubin Negative Urine Urobilinogen 0.2 Ur Leukocyte Esterase Negative Urine RBC 0-1/hpf Urine WBC 0-1/hpf Urine Bacteria None seen Urine Mucus 1+ H Ur Culture Indicated? Culture not indicate Urine Osmolality Ur Random Sodium 08/28/19 08/28/19 08/29/19 17:40 17:40 08:47 WBC RBC Hgb Hct MCV MCH MCHC RDW Plt Count Neut % (Auto) Lymph % (Auto) [place] % (Auto) Eos % (Auto) Baso % (Auto) Neut # (Auto) Lymph # (Auto) [place] # (Auto) Eos # (Auto) Baso # (Auto) PT INR APTT Sodium 130 L Potassium 3.8 Chloride 93 L Carbon Dioxide 27 BUN 9 Creatinine 0.60 L Estimated GFR > 60.0 BUN/Creatinine Ratio 15.0 Glucose 113 H Lactate Calcium 9.0 Magnesium 1.9 Total Bilirubin AST ALT Alkaline Phosphatase Total Creatine Kinase Troponin I B-Natriuretic Peptide Total Protein Albumin Globulin Albumin/Globulin Ratio Triglycerides Cholesterol LDL Cholesterol, Calc HDL Cholesterol Procalcitonin TSH Prolactin Urine Color Urine Appearance Urine pH Ur Specific [place] Urine Protein Urine Glucose (UA) Urine Ketones Urine Occult Blood Urine Nitrate Urine Bilirubin Urine Urobilinogen Ur Leukocyte Esterase Urine RBC Urine WBC Urine Bacteria Urine Mucus Ur Culture Indicated? Urine Osmolality Cancelled Ur Random Sodium 28 L 08/29/19 08:47 WBC RBC Hgb Hct MCV MCH MCHC RDW Plt Count Neut % (Auto) Lymph % (Auto) [place] % (Auto) Eos % (Auto) Baso % (Auto) Neut # (Auto) Lymph # (Auto) [place] # (Auto) Eos # (Auto) Baso # (Auto) PT INR APTT Sodium Potassium Chloride Carbon Dioxide BUN Creatinine Estimated GFR BUN/Creatinine Ratio Glucose Lactate Calcium Magnesium Total Bilirubin AST ALT Alkaline Phosphatase Total Creatine Kinase Troponin I B-Natriuretic Peptide Total Protein Albumin Globulin Albumin/Globulin Ratio Triglycerides 49 Cholesterol 122 L LDL Cholesterol, Calc 47 HDL Cholesterol 65 H Procalcitonin TSH Prolactin Urine Color Urine Appearance Urine pH Ur Specific [place] Urine Protein Urine Glucose (UA) Urine Ketones Urine Occult Blood Urine Nitrate Urine Bilirubin Urine Urobilinogen Ur Leukocyte Esterase Urine RBC Urine WBC Urine Bacteria Urine Mucus Ur Culture Indicated? Urine Osmolality Ur Random Sodium Discharge Plan Discharge Plan Patient Disposition: Hospice - Home Discharge comment: Your being discharged home with hospice which will deliver equipment tomorrow and hospice to open on Thursday. Here provided morphine Discharge Med Rec/Prescriptions Prescriptions: New morphine concentrate 100 mg/5 mL (20 mg/mL) solution 10 mg PO Q6H PRN (Reason: pain/discomfort or air hunger) Qty: 15 RF: 0 Continued glycerin (adult) suppository 1 suppositor CA QD-BID PRN (Reason: constipation) Qty: 10 RF: 0 erythromycin 5 mg/gram (0.5 %) Ointment 0.5 inch OPHTHALMIC (EYE) TID RF: 0 Discontinued memantine 7 mg capsule,sprinkle,ER 24hr 14 mg PO BID RF: 0 finasteride 5 mg tablet 5 mg PO DAILY RF: 0 alfuzosin 10 mg tablet extended release 24 hr 10 mg PO DAILY RF: 0 simvastatin 40 mg tablet 40 mg PO BEDTIME RF: 0 omeprazole 20 mg capsule,delayed release(DR/EC) 20 mg PO DAILY RF: 0 donepezil 5 mg tablet 5 mg PO BID RF: 0 amlodipine 5 mg tablet 5 mg PO BID RF: 0 Follow up/Referrals: Tyrone Loya MD [Primary Care Provider] - Discharge Orders: Discharge (Order); Ordered 08/29/19 Ordered By: Tessa Weiss Provider Discharge Instructions Diet: Diet as Tolerated Diet comment: Comfort eating Activity: Activity as tolerated but will likely be on bedrest Discharge Data Primary Care Provider: Tyrone Loya Attending Provider: Bria Amezcua Admit Date/Time: 08/28/19 21:27 Quality VTE Deep Vein Thrombosis/Pulmonary Embolism Present on Admission: No
--- NOTE | 2019-08-29 15:00 | OT.IP.TRT ---
Occupational Therapy Treatment Note M3 OT- IP Subjective and Pain Start: 08/29/19 14:59 Freq: Status: Active Protocol: Document 08/29/19 14:59 [facility] (Rec: 08/29/19 15:00 [facility] [id number]) OT- Subjective Occupational Therapy Visit Type Type Administrative Note Notes Pt being discharged to Hospice today.
--- NOTE | 2019-08-29 15:45 | PT.IPTN ---
Physical Therapy Treatment Note M3 PT-IP Subjective Start: 08/29/19 10:23 Freq: NEEDED Status: Active Protocol: Document 08/29/19 15:44 RS (Rec: 08/29/19 15:45 RS [id number]) Subjective Physical Therapy Visit Type Type Administrative Note Notes Pt currently not opening eyes or responding to stimuli. Attempted in AM and PM. If pt still in hospital tomorrow will attempt eval to assess for DME needs and any caregiver training that is needed.
[2019-08-29 16:00] VITALS: O2SAT 94
[2019-08-29 16:19] VITALS: PULSE 64; O2SAT 98
[2019-08-29 16:33] VITALS: BP 118/47; PULSE 57; RESP 21; TEMP 36.8; O2SAT 97
--- NOTE | 2019-08-30 11:18 | CM.DPC ---
Received a voicemail from Kyler at [facility] stating they did not receive a signed Physician's Certification form for this patient when they transported him home yesterday. He stated to please fax it over to him TIFFANIE for billing purposes at fax # [phone]. Form was faxed and was confirmation received, then scanned in. Matilda Dwyer, Care Electromechanical Assembly Technician
--- NOTE | 2019-09-11 01:10 | PC.NURSE ---
Late entry for 08/28/2019 2223 IV NS stop time 2223, IV NS intake 1000.
== END 2019-08-29 17:43 | disposition hospice, home (50) ==
LOC: ED 19:03 → AC 21:28
PROVIDERS: Admitting Provider Nurse Practitioner Gerontology; Emergency Provider Emergency Medicine; PCP Family Medicine; Visit Provider Nurse Practitioner Gerontology
DX: G30.9 Alzheimer's disease, unspecified (principal); F02.81 Dementia in other diseases classified elsewhere, unspecified severity, with behavioral disturbance; E87.1 Hypo-osmolality and hyponatremia; D64.9 Anemia, unspecified; I10 Essential (primary) hypertension; E78.5 Hyperlipidemia, unspecified; G47.33 Obstructive sleep apnea (adult) (pediatric); N40.0 Benign prostatic hyperplasia without lower urinary tract symptoms
CPT/HCPCS: 36415; 70450; 71045; 80048; 80053; 80061; 81001; 82550; 82962; 83605; 83735; 83880; 84145; 84146; 84300; 84443; 84484; 85025; 85610; 85730; 87040; 87077; 87086; 93005; 94762; 96361; 96374; 99284; 99285; G0378; J1644; J1940